=== PATIENT | female | born 1950 | race Caucasian/White ===

== ENCOUNTER 2017-03-15 07:42 | Inpatient (IN) ==
[2017-03-15] MEDS ORDERED: FUROSEMIDE 40 MG/4 ML VIAL IV STA (08:09)
[2017-03-15] MEDS ORDERED: NITROGLYCERIN 2% OINT 1 INCH/GM PACK TOP STA (08:09)
--- NOTE | 2017-03-15 08:11 | Emergency Department Note ---
Gayathri Gamble Rolonda, am scribing for, and in the presence of, Nigel Kulkarni MD 08: 08. Cayla Gamble James D, MD, personally performed the services described in this documentation, ascribed by Jackie Trinh in my presence, and it is both accurate and complete . Arrival - Arrival Chief Complaint: Shortness of Breath Stated Complaint: SOB ED Nursing Triage Note: c/o of shortness of breath and coughing. patient states it started last night. She states she had to sleep in a chair because she was unable to lay flat. Patient is coughing up clear sputum. Mode of Arrival: Ambulatory Limitations: No Limitations Source: Patient, Old Records Reviewed, RN Notes Reviewed - History of Present Illness HPI Narrative: Pt is a 67 y/o female who presents to the ED with c/o SOB with an onset of hours ago. Pt has a PMHx of CAD, HTN, and DM. Pt states that she cannot lay down without getting SOB. She states that her legs swell everyday and that she takes fluid pills for it. She confirms cough with clear production and chest tightness but denies MT, fever, and having stent. No other complaint/pain in ED. Onset (ago): hour(s) Consistency: constant Severity: mild Severity scale (1-10): 3 Allergies/Adverse Reactions: Allergies Allergy/AdvReac Type Severity Reaction Status Date / Time lisinopril Allergy Swelling Verified 03/15/17 07:49 of Lip/Tongue/Throat Home Medications: Home Medications Medication Instructions Recorded Confirmed Type metFORMIN [Glucophage] 1,000 mg PO BID W/MEALS 01/11/15 07/05/16 History cloNIDine TAB [Catapres Tab] 0.1 mg PO BEDTIME 10/11/15 07/05/16 History hydrALAZINE TAB [Apresoline Tab] 100 mg PO TID 10/11/15 07/05/16 History Carvedilol [Coreg] 25 mg PO BID 01/05/16 07/05/16 History Furosemide Tab [Lasix Tab] 40 mg PO DAILY 01/05/16 07/05/16 History Insulin NPH Hum/Reg Insulin Hm 40 unit SUBCUT BEDTIME 01/31/16 07/05/16 History [NovoLIN 70/30] clonazePAM [Klonopin] 0.5 tablet PO BEDTIME 01/31/16 07/05/16 History FLUoxetine [PROzac] 20 mg PO BID 02/07/16 07/05/16 History Gemfibrozil [Lopid] 600 mg PO BIDAC 02/07/16 07/05/16 History Gabapentin 300 mg PO 1400 07/05/16 07/05/16 History Gabapentin Cap/Tab [Neurontin 300 mg PO QAM 07/05/16 07/05/16 History Cap/Tab] Insulin NPH Hum/Reg Insulin Hm 30 unit SUBCUT AC LUNCH 07/05/16 07/05/16 History [NovoLIN 70/30] Ropinirole HCl [Requip] 6 mg PO BID 07/05/16 07/05/16 History Review of System - Review of System 12 point system: reviewed and no additional remarkable complaints except as stated - Review of System Constitutional: Absent: chills Eyes: Absent: discharge Head/Ears/Nose/Throat: Absent: earache Respiratory: Present: cough, respiratory distress (SOB) Cardiovascular: Present: orthopnea. Absent: palpitations Gastrointestinal: Absent: nausea Genitourinary female: Absent: dysuria Musculoskeletal: Present: joint swelling. Absent: arm pain Skin: Absent: rash Neurological: Absent: headache Psychiatric: Absent: anxiety Endocrine: Absent: cold intolerance Hematological/Lymphatic: Absent: easy bleeding Allergic/Immunologic: Absent: facial swelling Medical,Surgical,& Family Hx - Medical History Cardio: History of: CAD, Hypertension Psychological: History of: Anxiety Disorders, Depression HEENT: History of: Eye Problem (Glasses) Comment Only: HEENT Problems (catarcts) Endocrine: History of: Diabetes Mellitus (IDDM), Dyslipidemia, Thyroid Disorder Respiratory: History of: Obstructive Sleep Apnea (CPAP) Gastrointestinal: History of: Pancreatitis (twice around 1999) - Surgical History Cardiac Surgeries: Sugical HX of: Cardiac Catheterization (Dr. Mcgrath) HEENT Surgeries: Surgical HX of: Tonsilectomy & Adenoidectomy Abdominal Surgeries: Surgical HX of: Appendectomy, Cholecystectomy Reproductive Surgeries: Surgical HX of;: Hysterectomy Orthopedic Surgeries: Surgical HX of;: Total Knee Replacement (bilateral) - Family History Family History: Reports;: Family Heart Disease, Family Stroke (Mother) - Social History Smoking Status: Never smoker Frequency of Alcohol Use: None Type of Drug Use: None Exam Vital Signs: Vital Signs Temperature 98.2 F 03/15/17 07:45 Pulse Rate 75 03/15/17 07:45 Respiratory Rate 22 03/15/17 07:45 Blood Pressure 233/126 03/15/17 07:45 O2 Sat by Pulse Oximetry 97 03/15/17 07:45 GENERAL: This is a well-nourished well-developed obese white female in no apparent distress. VITAL SIGNS: Reviewed HEENT: Head is atraumatic and normocephalic. Pupils are equal round react to light. Extraocular movements are intact. Oropharynx is benign with moist mucous membranes. NECK: Neck is soft and supple without tenderness. There are no masses. There is no lymphadenopathy. LUNGS: Bibasilar rales. Chest rises symmetrically. There is no chest wall tenderness. CV: Heart is regular rate and rhythm without murmurs rubs or gallops. ABDOMEN: Abdomen is soft, nontender to palpation. There are no abdominal abnormal masses palpated. There is no organomegaly. Bowel sounds are present and active. SKIN: Skin is warm and dry. No rash. EXTREMITIES: Patient has full range of motion without tenderness. There is 1-2 + pedal edema. NEUROLOGIC: Awake alert and oriented 4. Cranial nerves II through XII are grossly intact. Motor is 5 over 5 in all extremities bilaterally. Deep tendon reflexes are 2+ and bilaterally equal. Course - Consultations Consultation #1: Discussed with hospitalist. Patient will be admitted to their service. Time: 09:08 Results - Labs CBC & BMP: 03/15/17 08:08 03/15/17 08:08 Lab Results: I have reviewed the patients labs Labs: Laboratory Tests 03/15/17 08:08 Troponin I < 0.015 - EKG EKG results: interpreted by ERMD - Impressions EKG: Normal sinus rhythm with a rate of 75, old anterior MT, nonspecific ST-T wave changes. - Diagnostic Findings Procedure: Chest x-ray: image reviewed by me (Increased pulmonary markings bilaterally.) Disposition Clinical Impression: Uncontrolled hypertension, Congestive heart failure Case discussed with: patient, patient's family Disposition: Still a Patient
[2017-03-15] MEDS ORDERED: NITROGLYCERIN 2% OINT 1 INCH/GM PACK TOP ONE (08:15)
[2017-03-15] MEDS ORDERED: FUROSEMIDE 100 MG/10 ML VIAL ONE (08:15)
[2017-03-15 08:28] LABS: Basophils # 0.1 10*3/uL (0.0-0.2); Eosinophils # 0.3 10*3/uL (0.0-0.87); Eosinophils % 3.3 % (0.00-10.9); Hematocrit 32.8 VOL% (35.7-47.0); Hemoglobin 10.8 GM/DL (12.0-16.0); Immature Granulocytes % 0.7 %; Immature Granulocytes Absolute 0.07 #; Lymphocytes # 1.1 10*3/uL (1.4-4.0); Lymphocytes % 10.9 % (21.3-54.2); Mean Corpuscular HGB Conc 32.9 GM/DL (32-36); Mean Corpuscular Hemoglobin 29 PG (27-34); Mean Corpuscular Volume 88.9 FL (87-102); Mean Platelet Volume 11.3 FL (9.6-12.0); Monocytes # 0.8 10*3/uL (0.11-0.8); Monocytes % 7.9 % (1.7-12.7); Neutrophils # 7.6 10*3/uL (1.4-7.4); Neutrophils % 76.2 % (38.7-73.9); Platelet Count 313 T/CUMM (130-400); Red Blood Count 3.69 MC/CUMM (3.8-5.5); Red Cell Distribution Width 12.5 % (9.3-17.3)
[2017-03-15 08:46] LABS: Alanine Aminotransferase 24 U/L (13-56); Albumin 3.8 G/DL (3.4-5.0); Alkaline Phosphatase 100 U/L (45-117); Aspartate Amino Transferase 20 U/L (0-37); Bilirubin,Total < 0.39 MG/DL (0.2-1.0); Blood Urea Nitrogen 31 MG/DL (7-18); Calcium 9.2 MG/DL (8.5-10.1); Glucose 91 MG/DL (74-106); Osmolality,Calculated 287.3 MOS/KG (273-304); Potassium 4.3 MMOL/L (3.5-5.1); Sodium 141 MMOL/L (136-145); Troponin I Only < 0.015 NG/ML (0.00-0.045)
--- NOTE | 2017-03-15 09:57 | EKG Report ---
Stationary ECG Study [facility] ER Test Date: 03/15/2017 8:01:57 AM Pat Name: CHARLEY LEONARDO Department: Room: 122 Gender: F [employer]: : 1950 Requested by: Nigel Garcia Order Number: [id number] Reading MD: TONIO CAAL Intervals [place] Rate: 75 P: -11 [place]: 181 QRS: -23 QRSD: 85 T: 37 QT: 390 QTc: 419 Interpretive Statements SINUS RHYTHM LEFT AXIS DEVIATION POOR R-WAVE PROGRESSION Electronically Signed On 03-15-17 16:15:23 CDT by TONIO CAAL [email or web address]
[2017-03-15] MEDS ORDERED: DEXTROSE 50% 25 GM/50 ML VIAL IV PRN ×2 (10:08)
[2017-03-15] MEDS ORDERED: GLUCAGON 1 MG VIAL IM PRN ×2 (10:08)
--- NOTE | 2017-03-15 10:44 | XRay Report ---
2 view chest March 15, 2017 at 0818 hours Indication: Shortness of breath Comparison: July 05, 2015 Findings: Cardiomediastinal contours are stable. Lungs are clear bilaterally. No acute osseous abnormalities. Visualized upper abdomen demonstrates no acute pathology. Impression: No acute cardiopulmonary findings PROCEDURE INTERPRETED AT [facility] DEPARTMENT OF RADIOLOGY Final Report Signed by: Dre Gonzalez
--- NOTE | 2017-03-15 11:02 | Hospitalist History & Physical ---
Addendum entered and electronically signed by Ashley Ramirez CNP 03/15/17 11 :14: History of present illness This is a very pleasant 59-year-old female that presented to the ED at [facility] this morning for the evaluation of shortness of breath. The patient has a medical history significant for coronary artery disease, diabetes mellitus, hypertension, obstructive sleep apnea, restless leg syndrome , morbid obesity, peripheral neuropathy, hypothyroidism, and medical noncompliance. Patient surgical history significant for cardiac catheterization , tonsillectomy, adenoidectomy, appendectomy, cholecystectomy, hysterectomy, and bilateral total knee replacement. The patient reported the onset of symptoms on last night. She reported that she gradually became short of breath on yesterday and her symptoms became very severe on last night. She reported that she was unable to lie flat and that her lower legs were edematous. In addition, she reported a productive cough with clear-colored sputum and chest tightness. She notified her daughter who subsequently transported her to [facility] for further evaluation. The patient was assessed at the time of ED presentation. The patient was noted to be grossly hypertensive with a blood pressure noted at 233/126. The patient was immediately started on intravenous antihypertensive agents and intravenous diuretics were administered. Labs were obtained which were remarkable for hemoglobin 10.8, hematocrit 32.8, BUN 31, and BNP at 363. Chest x-ray was essentially unremarkable for the presence of any acute cardiopulmonary findings. After brief discussion with both Dr. Kulkarni and Dr. Reid, the patient will be admitted to the hospitalist service for continuation of care. Due to the severity of the patient's presenting symptoms, a cardiology consultation has been requested. The patient's home medications have been reviewed and reconciled. CODE STATUS discussed; patient is a FULL CODE. Original Note: <Ashley Ramirez - Last Filed: 03/15/17 10:59> Assessment and Plan (1) Congestive heart failure Status: Acute Assessment and plan: Chest x-ray was essential unremarkable; BNP noted at 363. Lasix given in the ED ; 2.5 liters removed. We will continue IV diuresis and resume home medications as previously ordered. Upon review of the patient's medical record, echocardiogram on 06/26 reported an estimated ejection fraction at 60%. The patient reports that she has not been seen by a title i paraprofessional since then. She reported that she had previously underwent an elective heart catheterization which was essentially negative. Due to the severity of the patient's presenting symptoms, we will consult cardiology to evaluate. Current Visit: Yes (2) Uncontrolled hypertension Status: Acute Assessment and plan: The patient's blood pressure was grossly elevated at the time of ED presentation. The patient's blood pressure was noted at 233/126. Cardene was initiated. In addition, the patient was diuresed. We will monitor blood pressures throughout the clinical encounter and titrate Cardene as needed. Current Visit: Yes (3) DVT prophylaxis Status: Acute Assessment and plan: We will initiate DVT prophylaxis. Current Visit: No History of Present Illness History of present illness: Ms. Espinoza is a 67 year old female Home Medications Medication Instructions Recorded Confirmed Type metFORMIN [Glucophage] 1,000 mg PO BID W/MEALS 01/11/15 03/15/17 History cloNIDine TAB [Catapres Tab] 0.1 mg PO BEDTIME 10/11/15 03/15/17 History hydrALAZINE TAB [Apresoline Tab] 100 mg PO TID 10/11/15 03/15/17 History Carvedilol [Coreg] 25 mg PO BID 01/05/16 03/15/17 History Furosemide Tab [Lasix Tab] 40 mg PO DAILY 01/05/16 03/15/17 History Insulin NPH Hum/Reg Insulin Hm 40 unit SUBCUT BEDTIME 01/31/16 03/15/17 History [NovoLIN 70/30] clonazePAM [Klonopin] 0.5 tablet PO BEDTIME 01/31/16 03/15/17 History Gemfibrozil [Lopid] 600 mg PO BIDAC 02/07/16 03/15/17 History Gabapentin 300 mg PO BEDTIME 07/05/16 03/15/17 History Gabapentin Cap/Tab [Neurontin 300 mg PO QAM 07/05/16 03/15/17 History Cap/Tab] Insulin NPH Hum/Reg Insulin Hm 30 unit SUBCUT AC LUNCH 07/05/16 03/15/17 History [NovoLIN 70/30] Ropinirole HCl [Requip] 6 mg PO BID 07/05/16 03/15/17 History Venlafaxine HCl [Effexor] 25 mg PO DAILY 03/15/17 03/15/17 History Allergies Allergy/AdvReac Type Severity Reaction Status Date / Time lisinopril Allergy Swelling Verified 03/15/17 07:49 of Lip/Tongue/Throat Medical,Surgical,& Family Hx - Medical History Cardio: History of: CHF, CAD, Hypertension Psychological: History of: Anxiety Disorders, Depression HEENT: History of: Eye Problem (Glasses), HEENT Problems (catarcts) Endocrine: History of: Diabetes Mellitus (IDDM), Dyslipidemia, Thyroid Disorder Respiratory: History of: Obstructive Sleep Apnea (CPAP) Gastrointestinal: History of: Pancreatitis (twice around 1999) - Surgical History Cardiac Surgeries: Sugical HX of: Cardiac Catheterization (Dr. Mcgrath) HEENT Surgeries: Surgical HX of: Tonsilectomy & Adenoidectomy Abdominal Surgeries: Surgical HX of: Appendectomy, Cholecystectomy Reproductive Surgeries: Surgical HX of;: Hysterectomy Orthopedic Surgeries: Surgical HX of;: Total Knee Replacement (bilateral) - Family History Family History: Reports;: Family Hypertension (mother), Family Stroke (Mother) Denies;: Family Heart Disease - Social History Smoking Status: Never smoker Frequency of Alcohol Use: None Type of Drug Use: None 12 point system: reviewed and no additional remarkable complaints except as stated Exam - Constitutional Vitals: Period Temp Pulse Resp BP Sys/David Pulse Ox Last 24 Hr 98.2 F-98.2 F 75-75 22-22 233-233/126-126 97 General appearance: mild distress - Head Head exam: Present: normal inspection. Absent: normocephalic, atraumatic - Eye Eye exam: Present: EOMI. Absent: conjunctival injection, nystagmus Pupils: Present: KAZ, normal accommodation - ENT ENT exam: Present: normal exam, normal external ear exam, normal oropharynx - Neck Neck exam: Present: normal inspection. Absent: lymphadenopathy, meningismus, tenderness, thyromegaly - Respiratory Respiratory exam: Present: rales (bibasilar rales noted) - Cardiovascular Cardiovascular exam: Present: regular rate and rhythm. Absent: carotid bruit, diastolic murmur, gallop, JVD, rubs, systolic murmur - GI/Abdominal GI/Abdominal exam: Present: normal bowel sounds. Absent: tenderness, soft - Extremities Exam Extremities exam: Present: normal inspection, normal capillary refill, full ROM , edema (+2 edema ) - Back Exam Back exam: Present: normal inspection - Neurological Exam Neurological exam: Present: alert, oriented X3, CN II-XII intact - Psychiatric Psychiatric exam: Present: normal affect, normal mood - Skin Skin exam: Present: normal color, warm, dry Results - Labs CBC & BMP: 03/15/17 08:08 03/15/17 08:08 Lab Results: I have reviewed the past 24 hour labs <Cyril Reid - Last Filed: 03/15/17 15:10> History of Present Illness Chief complaint: sob History of present illness: Patient seen and examined independently of TECHNICAL CABLE JOINTER James, agree with history, assessment and plan as documented. Patient presents with sob. BNP slightly elevated. Good diuresis with IV lasix in the ED. Continue IV lasix. Echo pending. On cardene infusion. Start home anti-hypertensives. Exam - Constitutional Vitals: Period Temp Pulse Resp BP Sys/David Pulse Ox Last 24 Hr 97.4 F-98.2 F 72-85 15-25 121-233/54-126 92-97 Results - Labs CBC & BMP: 03/15/17 08:08 03/15/17 08:08
[2017-03-15 11:51] LABS: Apearance,Urine CLEAR (Clear); Bilirubin,Urine Negative (Negative); Blood, Urine Negative (Negative); Glucose,Urine (UA) Negative (Negative); Ketones,Urine Negative (Negative); Mucus,Urine Occasional /LPF (Occasional); Nitrite,Urine Negative (Negative); Protein,Urine 30 MG/DL; RBC,Urine 1 /HPF (0-4); Squamous Epithelial Cell,Urine Occasional /HPF (0-10); Urine Color Straw (Yellow); Urine Specific Gravity 1.008 (1.001-1.035); Urine Urobilinogen < 2.0 EU/DL (0.2-1.0); WBC,Urine <1 /HPF (0-6)
[2017-03-15] MEDS: INSULIN REGULAR 100 UNIT/ML SUBCUT SCH ×3 (11:55→20:17)
[2017-03-15] MEDS: rOPINIRole 1 MG TABLET PO SCH ×2 (12:17→20:16)
[2017-03-15] MEDS: ENOXAPARIN 40 MG/0.4 ML SYRINGE SUBCUT SCH (12:19)
[2017-03-15] MEDS ORDERED: ACETAMINOPHEN 325 MG TABLET PO PRN (12:46)
[2017-03-15] MEDS ORDERED: ONDANSETRON 4 MG/2 ML VIAL IV PRN (13:10)
[2017-03-15] MEDS ORDERED: ONDANSETRON 4 MG/2 ML VIAL ONE (13:11)
[2017-03-15] MEDS: niCARdipine INJ 25 MG in SODIUM CHLORIDE 0.9% 240 ML IV SCH ×2 (13:21→19:31)
[2017-03-15] MEDS ORDERED: MAGNESIUM SULF RIDER 2 GM in PREMIX 1 EACH IV PRN (13:44)
[2017-03-15] MEDS ORDERED: POTASSIUM CHLORIDE RIDER 10 MEQ in PREMIX 1 EACH IV PRN (13:44)
[2017-03-15] MEDS ORDERED: MAGNESIUM SULF RIDER 4 GM in PREMIX 1 EACH IV PRN (13:44)
[2017-03-15] MEDS: GABAPENTIN 300 MG CAPSULE PO SCH (14:07)
[2017-03-15] MEDS: FUROSEMIDE 40 MG/4 ML VIAL IV SCH (15:55)
--- NOTE | 2017-03-15 15:55 | ECHO Report ---
Sarahi Espinoza Exam Date: 03/15/2017 10:50 Referring Physician: Technologist: Nancy Oconnor Age: 67 Ht (in): 66 Wt (lb): 225 Gender: F Exam Location: [facility] Echo Indications: SOB, HTN, edema, CHF exacerbation BP: 133 / 126 HR: 75 Rhythm: Sinus Technical Quality: Technically difficult study IMPRESSIONS Technically difficult study. Left ventricular ejection fraction is estimated at greater than 65 %. Mild concentric left ventricular hypertrophy. Mild aortic sclerosis without stenosis. Mildly thickened mitral valve with trace mitral regurgitation. Trace tricuspid valve regurgitation. MEASUREMENTS (Male / Female) Normal Values 2D ECHO LV Diastolic Diameter PLAX 4.1 cm 4.2 - 5.9 / 3.9 - 5.3 cm LV Systolic Diameter PLAX 2.1 cm LV Fractional Shortening PLAX 49.1 % IVS Diastolic Thickness 1.1 cm 0.6 - 1.0 / 0.6 - 0.9 cm LVPW Diastolic Thickness 1.3 cm 0.6 - 1.0 / 0.6 - 0.9 cm Aortic Root Diameter 2.3 cm LA Systolic Diameter LX 3.3 cm 3.0 - 4.0 / 2.7 - 3.8 cm DOPPLER TR Peak Velocity 266.0 cm/s TR Peak Gradient 28.3 mmHg FINDINGS Left Ventricle Normal left ventricular cavity size. Mild concentric left ventricular hypertrophy. Left ventricular ejection fraction is estimated at greater than 65 %. Right Ventricle Normal right ventricular size. Right Atrium Normal right atrial size. Left Atrium Normal left atrial size. Mitral Valve Mildly thickened mitral valve with trace mitral regurgitation. Aortic Valve Mild aortic sclerosis without stenosis. Tricuspid Valve Morphologically normal tricuspid valve. Trace tricuspid valve regurgitation. Tricuspid regurgitation velocities suggest a PAP of 28.3 mmHg + RAP. Pulmonic Valve Morphologically normal pulmonic valve. Pericardium No pericardial effusion. Aorta Normal size aortic root and proximal ascending aorta. Phu Laboy (Electronically Signed) Final Date: 15 March 2017 15:54
[2017-03-15] MEDS: GEMFIBROZIL 600 MG TABLET PO SCH (16:34)
--- NOTE | 2017-03-15 16:36 | Cardiology Consult Note ---
Assessment and Plan (1) Acute diastolic (congestive) heart failure Status: Acute Assessment and plan: The patient has preserved left ventricular and valvular function. This appears to be diastolic heart failure which may be related to dietary indiscretion, excessive sodium and carbohydrate intake which promotes fluid retention while the patient was on the beach recently. She has responded promptly to diuresis and is feeling dramatically better. Current Visit: Yes (2) Uncontrolled hypertension Status: Acute Assessment and plan: I am going to review make some adjustments in medications to try to optimize her hypertension control. Current Visit: Yes (3) Diabetes mellitus Status: Chronic Current Visit: No (4) Hypothyroidism Status: Chronic Current Visit: No Qualifiers: (5) Obesity Status: Chronic Current Visit: No (6) Obstructive sleep apnea Status: Chronic Current Visit: No (7) Peripheral neuropathy Status: Chronic Current Visit: No Qualifiers: Peripheral neuropathy type: polyneuropathy associated with underlying disease Qualified Code(s): G63 - Polyneuropathy in diseases classified elsewhere History of Present Illness - Consult Narrative History of present illness: Ms. Espinoza is a 67 year old female who has a past medical history of hypertension and diabetes. She came into the hospital after having progressive dyspnea/orthopnea over the previous day or 2. She says that she was on the beach and they had significant dietary noncompliance excessively, including food with higher carbohydrate and sodium content. Ultimately, patient was found to be profoundly hypertensive and moderately volume overloaded. She was treated with diuresis and she tells me "they have emptied that bottle about 5 times since I got here". She is now feeling essentially back to normal. Patient has no significant coronary artery disease. She apparently underwent cardiac catheterization a few years ago with Dr. Mcgrath. She did not have any significant obstructive disease at that time and did not require percutaneous coronary intervention. The patient does not have any anginal symptoms. She denies any palpitations or syncope. Essentially she had orthopnea, dyspnea, and peripheral edema. The symptoms were moderate in severity. There were no associated symptoms such as nausea or diaphoresis. Symptoms have rapidly resolved with diuresis. I reviewed the patient's echocardiogram today which shows normal left ventricular systolic function. She does not have any significant valvular heart disease. She does have diastolic dysfunction. This appears to be a case of acute diastolic congestive heart failure related to lifestyle/dietary indiscretion which is probably resolving with medical therapy/ diuresis. Patient does report a history of hypertension and tells me that her blood pressure sometimes runs too high. I will review her medications and make some adjustments to try to get this better controlled. She has a history of diabetes and reports that this is fairly well controlled, though she does have a history of diabetic neuropathy. CC: Cyril Reid MD - Home Medications and Allergies Home Medications: Home Medications Medication Instructions Recorded Confirmed Type metFORMIN [Glucophage] 1,000 mg PO BID W/MEALS 01/11/15 03/15/17 History cloNIDine TAB [Catapres Tab] 0.1 mg PO BEDTIME 10/11/15 03/15/17 History hydrALAZINE TAB [Apresoline Tab] 100 mg PO TID 10/11/15 03/15/17 History Carvedilol [Coreg] 25 mg PO BID 01/05/16 03/15/17 History Furosemide Tab [Lasix Tab] 40 mg PO DAILY 01/05/16 03/15/17 History Insulin NPH Hum/Reg Insulin Hm 40 unit SUBCUT BEDTIME 01/31/16 03/15/17 History [NovoLIN 70/30] clonazePAM [Klonopin] 0.5 tablet PO BEDTIME 01/31/16 03/15/17 History Gemfibrozil [Lopid] 600 mg PO BIDAC 02/07/16 03/15/17 History Gabapentin 300 mg PO BEDTIME 07/05/16 03/15/17 History Gabapentin Cap/Tab [Neurontin 300 mg PO QAM 07/05/16 03/15/17 History Cap/Tab] Insulin NPH Hum/Reg Insulin Hm 30 unit SUBCUT AC LUNCH 07/05/16 03/15/17 History [NovoLIN 70/30] Ropinirole HCl [Requip] 6 mg PO BID 07/05/16 03/15/17 History Venlafaxine HCl [Effexor] 25 mg PO DAILY 03/15/17 03/15/17 History Allergies/Adverse Reactions: Allergies Allergy/AdvReac Type Severity Reaction Status Date / Time lisinopril Allergy Swelling Verified 03/15/17 07:49 of Lip/Tongue/Throat 12 point system: reviewed and no additional remarkable complaints except as stated Medical,Surgical,& Family Hx - Medical History Cardio: History of: CHF, CAD, Hypertension Psychological: History of: Anxiety Disorders, Depression HEENT: History of: Eye Problem (Glasses), HEENT Problems (catarcts) Endocrine: History of: Diabetes Mellitus (IDDM), Dyslipidemia, Thyroid Disorder Respiratory: History of: Obstructive Sleep Apnea (CPAP) Gastrointestinal: History of: Pancreatitis (twice around 1999) - Surgical History Cardiac Surgeries: Sugical HX of: Cardiac Catheterization (Dr. Mcgrath) HEENT Surgeries: Surgical HX of: Tonsilectomy & Adenoidectomy Abdominal Surgeries: Surgical HX of: Appendectomy, Cholecystectomy Reproductive Surgeries: Surgical HX of;: Hysterectomy Orthopedic Surgeries: Surgical HX of;: Total Knee Replacement (bilateral) - Family History Family History: Reports;: Family Hypertension (mother), Family Stroke (Mother) Denies;: Family Heart Disease - Social History Smoking Status: Never smoker Frequency of Alcohol Use: None Type of Drug Use: None Physical Examination Vital Signs Temp Pulse Resp BP Pulse Ox 98.2 F 75 22 233/126 97 03/15/17 07:45 03/15/17 07:45 03/15/17 07:45 03/15/17 07:45 03/15/17 07:45 Exam: General: Appears well developed, obese, well nourished, no apparent distress HEENT: Normocephalic, atraumatic Neck: Supple Neck, Midline Trachea, No Bruit, No JVD Cardiac: Regular rhythm, 1-2 out of 6 murmur, no gallop, no rub Lungs: Clear to auscultation, No Wheeze, Rales, Rhonchi Neuro: Cranial Nerve 2-12 Intact, Motor Function Grossly Intact Abdomen: Soft, Active Bowel Sounds, No Masses, No Pulsations/Bruits Skin: Normal color, no rash Extremities: No Clubbing, No Cyanosis, trace edema, Normal Upper Extr. Pulses Musculoskeletal: No acute abnormality noted Psychiatric: The patient does not appear to be anxious or depressed Result/EKG - Labs CBC & BMP: 03/15/17 08:08 03/15/17 08:08 Lab Results: I have reviewed the past 24 hour labs Labs: Laboratory Results - last 24 hr 03/15/17 03/15/17 03/15/17 08:08 08:08 08:08 WBC 10.0 RBC 3.69 L Hgb 10.8 L Hct 32.8 L MCV 88.9 MCH 29 MCHC 32.9 RDW 12.5 Plt Count 313 MPV 11.3 Neut % (Auto) 76.2 H Lymph % (Auto) 10.9 L [place] % (Auto) 7.9 Eos % (Auto) 3.3 Baso % (Auto) 1.0 H Neut # (Auto) 7.6 H Lymph # (Auto) 1.1 L [place] # (Auto) 0.8 Eos # (Auto) 0.3 Baso # (Auto) 0.1 Immature Gran % 0.7 Nucleated RBC % 0.0 Immature Gran # 0.07 Nucleated RBCs # 0.00 Immature Plt Fraction 0.0 Sodium 141 Potassium 4.3 Chloride 107 Carbon Dioxide 29 Anion Gap 9.3 BUN 31 H Creatinine 0.90 GFR Calculation 80 BUN/Creatinine Ratio 34.00 H Glucose 91 POC Glucose Hemoglobin A1c Calculated Osmolality 287.3 Calcium 9.2 Total Bilirubin < 0.39 AST 20 ALT 24 Alkaline Phosphatase 100 Troponin I < 0.015 B-Natriuretic Peptide 363 H Total Protein 7.0 Albumin 3.8 Globulin 3.2 Albumin/Globulin Ratio 1.1 Urine Color Urine Appearance Urine pH Ur Specific [place] Urine Protein Urine Glucose (UA) Urine Ketones Urine Blood Urine Nitrate Urine Bilirubin Urine Urobilinogen Urine Leukocytes Urine RBC Urine WBC Ur Squamous Epith Cells Urine Mucus Ur Culture Indicated? 03/15/17 03/15/17 03/15/17 08:48 11:34 11:42 WBC RBC Hgb Hct MCV MCH MCHC RDW Plt Count MPV Neut % (Auto) Lymph % (Auto) [place] % (Auto) Eos % (Auto) Baso % (Auto) Neut # (Auto) Lymph # (Auto) [place] # (Auto) Eos # (Auto) Baso # (Auto) Immature Gran % Nucleated RBC % Immature Gran # Nucleated RBCs # Immature Plt Fraction Sodium Potassium Chloride Carbon Dioxide Anion Gap BUN Creatinine GFR Calculation BUN/Creatinine Ratio Glucose POC Glucose 109 H Hemoglobin A1c 9.4 H Calculated Osmolality Calcium Total Bilirubin AST ALT Alkaline Phosphatase Troponin I B-Natriuretic Peptide Total Protein Albumin Globulin Albumin/Globulin Ratio Urine Color Straw Urine Appearance Clear Urine pH 7.0 Ur Specific [place] 1.008 Urine Protein 30 Urine Glucose (UA) Negative Urine Ketones Negative Urine Blood Negative Urine Nitrate Negative Urine Bilirubin Negative Urine Urobilinogen < 2.0 H Urine Leukocytes Negative Urine RBC 1 Urine WBC <1 Ur Squamous Epith Cells Occasional Urine Mucus Occasional Ur Culture Indicated? Not indicated 03/15/17 15:53 WBC RBC Hgb Hct MCV MCH MCHC RDW Plt Count MPV Neut % (Auto) Lymph % (Auto) [place] % (Auto) Eos % (Auto) Baso % (Auto) Neut # (Auto) Lymph # (Auto) [place] # (Auto) Eos # (Auto) Baso # (Auto) Immature Gran % Nucleated RBC % Immature Gran # Nucleated RBCs # Immature Plt Fraction Sodium Potassium Chloride Carbon Dioxide Anion Gap BUN Creatinine GFR Calculation BUN/Creatinine Ratio Glucose POC Glucose 197 H Hemoglobin A1c Calculated Osmolality Calcium Total Bilirubin AST ALT Alkaline Phosphatase Troponin I B-Natriuretic Peptide Total Protein Albumin Globulin Albumin/Globulin Ratio Urine Color Urine Appearance Urine pH Ur Specific [place] Urine Protein Urine Glucose (UA) Urine Ketones Urine Blood Urine Nitrate Urine Bilirubin Urine Urobilinogen Urine Leukocytes Urine RBC Urine WBC Ur Squamous Epith Cells Urine Mucus Ur Culture Indicated? - EKG EKG results: interpreted by me
[2017-03-15] MEDS: FLUoxetine 20 MG CAPSULE PO SCH (20:17)
[2017-03-15] MEDS: CARVEDILOL 25 MG TABLET PO SCH (20:17)
[2017-03-15] MEDS: cloNIDine 0.1 MG TABLET PO SCH (20:17)
[2017-03-15] MEDS: clonazePAM 0.5 MG TABLET PO SCH (20:17)
[2017-03-16 05:59] LABS: Basophils # 0.1 10*3/uL (0.0-0.2); Basophils % 1.1 % (0.0-0.8); Eosinophils # 0.1 10*3/uL (0.0-0.87); Eosinophils % 1.2 % (0.00-10.9); Hematocrit 32.7 VOL% (35.7-47.0); Hemoglobin 10.7 GM/DL (12.0-16.0); Immature Granulocytes % 0.7 %; Immature Granulocytes Absolute 0.05 #; Lymphocytes # 1.1 10*3/uL (1.4-4.0); Mean Corpuscular HGB Conc 32.7 GM/DL (32-36); Mean Corpuscular Hemoglobin 29 PG (27-34); Mean Corpuscular Volume 88.6 FL (87-102); Mean Platelet Volume 11.7 FL (9.6-12.0); Monocytes # 0.6 10*3/uL (0.11-0.8); Monocytes % 8.7 % (1.7-12.7); Neutrophils # 5.4 10*3/uL (1.4-7.4); Neutrophils % 73.3 % (38.7-73.9); Platelet Count 305 T/CUMM (130-400); Red Blood Count 3.69 MC/CUMM (3.8-5.5); Red Cell Distribution Width 12.6 % (9.3-17.3); White Blood Count 7.4 T/CUMM (4-12)
[2017-03-16 06:47] LABS: Albumin 3.4 G/DL (3.4-5.0); Bilirubin,Total 0.8 MG/DL (0.2-1.0); Magnesium 2.4 MG/DL (1.8-2.4); Osmolality,Calculated 285.7 MOS/KG (273-304); Phosphorous 4.2 MG/DL (2.5-4.9); Total Protein 6.6 G/DL (6.4-8.3)
[2017-03-16] MEDS: GEMFIBROZIL 600 MG TABLET PO SCH ×2 (07:47→16:11)
[2017-03-16] MEDS: FUROSEMIDE 40 MG/4 ML VIAL IV SCH ×2 (07:47→16:10)
[2017-03-16] MEDS: INSULIN REGULAR 100 UNIT/ML SUBCUT SCH ×4 (07:47→21:41)
--- NOTE | 2017-03-16 07:59 | XRay Report ---
Exam: XR chest 1V portable Date: 03/16/2017 4:00 AM Indication: COPD Comparison: 03/15/2017 Technical: AP portable Findings: Mild cardiomegaly. Lateral marginal osteophytes are present. External cardiac leads are present. Oxygen tubing superimposes exam. Mediastinum is intact Impression: 1. Cardiomegaly 2. Minimal motion artifact with some residual interstitial densities present in the lung go bilaterally and tiny low volume effusions are suspected 3. Slight improving aeration in the infrahilar region on the right PROCEDURE INTERPRETED AT [facility] ([facility]) DEPARTMENT OF RADIOLOGY Final Report Signed by: Dr. Víctor Galvez
--- NOTE | 2017-03-16 08:40 | Hospitalist Progress Note ---
Assessment and Plan (1) Acute diastolic (congestive) heart failure Status: Acute Assessment and plan: Impression: 1. Acute diastolic congestive heart failure Plan: Transfer to room. Hope to discharge soon. This note was completed using [employer] voice recognition software. There may be lap hand tool errors as a result. Current Visit: Yes Hospitalist: Subjective Interval history: Follow-up acute on chronic diastolic congestive heart failure, hypertension, and type II DM. The patient feels much better today. She is up eating breakfast. She offers no complaints. She denies any chest discomfort or dyspnea. Exam - Constitutional Vitals: Period Temp Pulse Resp BP Sys/David Pulse Ox Last 24 Hr 97.0 F-99.7 F 64-88 15-71 101-233/51-126 91-100 Vital signs are noted above. Heart is regular with a 2/6 systolic ejection murmur. Lungs are clear with no rales or wheezes. Abdomen is soft with no mass or tenderness. She is awake and alert. Results - Labs CBC & BMP: 03/16/17 04:54 03/16/17 04:55 Lab Results: I have reviewed the past 24 hour labs
[2017-03-16] MEDS: VENLAFAXINE 100 MG TABLET PO SCH (08:42)
[2017-03-16] MEDS: GABAPENTIN 300 MG CAPSULE PO SCH ×2 (08:43→14:29)
[2017-03-16] MEDS: CARVEDILOL 25 MG TABLET PO SCH ×2 (08:43→21:41)
[2017-03-16] MEDS: rOPINIRole 1 MG TABLET PO SCH ×2 (08:43→21:44)
[2017-03-16] MEDS: niCARdipine INJ 25 MG in SODIUM CHLORIDE 0.9% 240 ML IV SCH (08:44)
[2017-03-16] MEDS: FLUoxetine 20 MG CAPSULE PO SCH ×2 (08:45→21:43)
--- NOTE | 2017-03-16 11:03 | Cardiology Progress Note ---
Charli Gamble Vanessa RN, am scribing for, and in the presence of, Doris Mathew MD 11:03. Assessment and Plan - Time spent with patient Time spent with patient: Greater than 30 minutes (1) Acute diastolic (congestive) heart failure Status: Acute Assessment and plan: SEE PLAN OF CARE LISTED BELOW. Current Visit: Yes (2) Uncontrolled hypertension Status: Acute Assessment and plan: SEE PLAN OF CARE LISTED BELOW. Current Visit: Yes (3) Coronary artery disease Status: Chronic Assessment and plan: SEE PLAN OF CARE LISTED BELOW. Current Visit: No (4) Noncompliance with medications Status: Chronic Assessment and plan: SEE PLAN OF CARE LISTED BELOW. Current Visit: No (5) Diabetes mellitus Status: Chronic Assessment and plan: SEE PLAN OF CARE LISTED BELOW. Current Visit: No (6) Hypothyroidism Status: Chronic Assessment and plan: SEE PLAN OF CARE LISTED BELOW. Current Visit: No Qualifiers: (7) Obesity Status: Chronic Assessment and plan: SEE PLAN OF CARE LISTED BELOW. Current Visit: No (8) Obstructive sleep apnea Status: Chronic Assessment and plan: SEE PLAN OF CARE LISTED BELOW. Current Visit: No (9) Peripheral neuropathy Status: Chronic Assessment and plan: SEE PLAN OF CARE LISTED BELOW. Current Visit: No Qualifiers: Peripheral neuropathy type: polyneuropathy associated with underlying disease Qualified Code(s): G63 - Polyneuropathy in diseases classified elsewhere (10) angioedema with lisinopril Status: Resolved Assessment and plan: SEE PLAN OF CARE LISTED BELOW. Current Visit: No (11) Essential hypertension Status: Chronic Assessment and plan: SEE PLAN OF CARE LISTED BELOW. Current Visit: No Cardiology - PN: Subj Interval history: [employer] MANAGER: DR. MCGRATH SUMMARY: 67-year-old WF, with PMHx hypertension, diabetes (with neuropathy), obstructive sleep apnea (on CPAP), hypothyroidism, and CAD. Admitted to [facility] after presenting to ED on afternoon of 03/15 with c/o increasing dyspnea, orthopnea, and lower extremity edema for 1 week. Blood pressure was uncontrolled , 223/116, required IV Cardene infusion. BNP 363. Chest x-ray normal. Greater than 2,500 mls output after IV diuretic in ER. Echocardiogram with preserved LV systolic function, EF 65%, mild LVH, trace TR with PA pressure 28.3 mmHg. Patient had recently returned from week long family vacation to the [place], and admitted to dietary noncompliance. No exertional chest pain or discomfort. Weed much better soon after admission with initiation of IV Lasix therapy and with BP now more controlled. Cardiology was asked to see for further assistance of acute diastolic CHF, uncontrolled HTN. Noted allergy to MINDY inhibitors ( angioedema). 2016: Mrs. Espinoza closely observed in CCU overnight. She is awake, pleasant, and in no acute distress this morning. Reports she is feeling much better, able to breathe comfortably, and that lower extremity edema is much improved as she says , "It isn't even half of what it was yesterday." SBP 130-155 mmHg range. Productive cough, clear sputum. Cardiac monitoring demonstrates sinus rhythm, HR averaging 60s. Labs reviewed. Cell counts unremarkable. Electrolytes within acceptable range. Creatinine slightly increased after aggressive diuresis to 1.1 (0.9 on admit). BNP decreased, 174. Hemoglobin A1c 9.4. ASSESSMENT/PLAN: 1. ACUTE CHF, DIASTOLIC -patient has preserved LV systolic function. Acute CHF most likely secondary to uncontrolled hypertension and excessive dietary noncompliance on recent vacation. Much improved today after aggressive IV diuresis overnight. Continue diuresis. Strict I/O, daily weights, BMP. 2. HYPERTENSION -uncontrolled hypertension on admission. Required IV Cardene, has since been weaned off. Procardia XL 30 mg by mouth nightly was initiated last night. She acknowledges that she does not routinely check her blood pressure at home and does not know how long it has been uncontrolled. 3. DIABETES -reports this is usually controlled but she does have neuropathy. Hemoglobin A1c 9.4 on admit. 4. DYSLIPIDEMIA -continue lipid-lowering agent. Review fasting lipid panel. 5. MISTI -continue CPAP. 6. OBESITY -dietary counseling and caloric intake restriction 7. CAD -patient is not having any anginal complaint. Has reportedly undergone previous cardiac catheterization per Dr. Mcgrath "3-4 years ago" with nonobstructive CAD being managed medically. 8. HYPOTHYROID - continue thyroid supplement. 9. NONCOMPLIANCE - reiterated the importance of medical and dietary compliance. Exam (Progress Note) - Constitutional Vitals: Period Temp Pulse Resp BP Sys/David Pulse Ox Last 24 Hr 97.0 F-99.7 F 64-88 15-71 101-233/51-126 91-100 Exam: General: Appears well developed, obese, well nourished, no apparent distress HEENT: Normocephalic, atraumatic Neck: Supple Neck, Midline Trachea, No Bruit, JVD Cardiac: Regular rhythm, systolic murmur, no gallop, no rub Lungs: Rales bibasilarly-greater on left than right, No Wheeze, No Rhonchi Neuro: Cranial Nerve 2-12 Intact, Motor Function Grossly Intact. Alert and oriented x 3. No tremor appreciated. Abdomen: Soft, Active Bowel Sounds, No Masses, No Pulsations/Bruits. No tenderness. Skin: Normal color, no rash. Warm and dry. Extremities: No Clubbing, No Cyanosis, pretibial and pedal trace edema, Normal Upper and Lower extremity pulses Musculoskeletal: No acute abnormality noted Psychiatric: The patient does not appear to be anxious or depressed. Normal affect and mood Result/EKG - Labs CBC & BMP: 03/16/17 04:54 03/16/17 04:55 Lab Results: I have reviewed the past 24 hour labs Labs: Laboratory Results - last 24 hr 03/15/17 03/15/17 03/15/17 08:08 08:08 08:08 WBC 10.0 RBC 3.69 L Hgb 10.8 L Hct 32.8 L MCV 88.9 MCH 29 MCHC 32.9 RDW 12.5 Plt Count 313 MPV 11.3 Neut % (Auto) 76.2 H Lymph % (Auto) 10.9 L [place] % (Auto) 7.9 Eos % (Auto) 3.3 Baso % (Auto) 1.0 H Neut # (Auto) 7.6 H Lymph # (Auto) 1.1 L [place] # (Auto) 0.8 Eos # (Auto) 0.3 Baso # (Auto) 0.1 Immature Gran % 0.7 Nucleated RBC % 0.0 Immature Gran # 0.07 Nucleated RBCs # 0.00 Immature Plt Fraction 0.0 Sodium 141 Potassium 4.3 Chloride 107 Carbon Dioxide 29 Anion Gap 9.3 BUN 31 H Creatinine 0.90 GFR Calculation 80 BUN/Creatinine Ratio 34.00 H Glucose 91 POC Glucose Hemoglobin A1c Calculated Osmolality 287.3 Calcium 9.2 Phosphorus Magnesium Total Bilirubin < 0.39 AST 20 ALT 24 Alkaline Phosphatase 100 Troponin I < 0.015 B-Natriuretic Peptide 363 H Total Protein 7.0 Albumin 3.8 Globulin 3.2 Albumin/Globulin Ratio 1.1 Urine Color Urine Appearance Urine pH Ur Specific [place] Urine Protein Urine Glucose (UA) Urine Ketones Urine Blood Urine Nitrate Urine Bilirubin Urine Urobilinogen Urine Leukocytes Urine RBC Urine WBC Ur Squamous Epith Cells Urine Mucus Ur Culture Indicated? 03/15/17 03/15/17 03/15/17 08:48 11:34 11:42 WBC RBC Hgb Hct MCV MCH MCHC RDW Plt Count MPV Neut % (Auto) Lymph % (Auto) [place] % (Auto) Eos % (Auto) Baso % (Auto) Neut # (Auto) Lymph # (Auto) [place] # (Auto) Eos # (Auto) Baso # (Auto) Immature Gran % Nucleated RBC % Immature Gran # Nucleated RBCs # Immature Plt Fraction Sodium Potassium Chloride Carbon Dioxide Anion Gap BUN Creatinine GFR Calculation BUN/Creatinine Ratio Glucose POC Glucose 109 H Hemoglobin A1c 9.4 H Calculated Osmolality Calcium Phosphorus Magnesium Total Bilirubin AST ALT Alkaline Phosphatase Troponin I B-Natriuretic Peptide Total Protein Albumin Globulin Albumin/Globulin Ratio Urine Color Straw Urine Appearance Clear Urine pH 7.0 Ur Specific [place] 1.008 Urine Protein 30 Urine Glucose (UA) Negative Urine Ketones Negative Urine Blood Negative Urine Nitrate Negative Urine Bilirubin Negative Urine Urobilinogen < 2.0 H Urine Leukocytes Negative Urine RBC 1 Urine WBC <1 Ur Squamous Epith Cells Occasional Urine Mucus Occasional Ur Culture Indicated? Not indicated 03/15/17 03/15/17 03/16/17 15:53 20:08 04:54 WBC 7.4 RBC 3.69 L Hgb 10.7 L Hct 32.7 L MCV 88.6 MCH 29 MCHC 32.7 RDW 12.6 Plt Count 305 MPV 11.7 Neut % (Auto) 73.3 Lymph % (Auto) 15.0 L [place] % (Auto) 8.7 Eos % (Auto) 1.2 Baso % (Auto) 1.1 H Neut # (Auto) 5.4 Lymph # (Auto) 1.1 L [place] # (Auto) 0.6 Eos # (Auto) 0.1 Baso # (Auto) 0.1 Immature Gran % 0.7 Nucleated RBC % 0.0 Immature Gran # 0.05 Nucleated RBCs # 0.00 Immature Plt Fraction 0.0 Sodium Potassium Chloride Carbon Dioxide Anion Gap BUN Creatinine GFR Calculation BUN/Creatinine Ratio Glucose POC Glucose 197 H 289 H Hemoglobin A1c Calculated Osmolality Calcium Phosphorus Magnesium Total Bilirubin AST ALT Alkaline Phosphatase Troponin I B-Natriuretic Peptide Total Protein Albumin Globulin Albumin/Globulin Ratio Urine Color Urine Appearance Urine pH Ur Specific [place] Urine Protein Urine Glucose (UA) Urine Ketones Urine Blood Urine Nitrate Urine Bilirubin Urine Urobilinogen Urine Leukocytes Urine RBC Urine WBC Ur Squamous Epith Cells Urine Mucus Ur Culture Indicated? 03/16/17 03/16/17 03/16/17 04:54 04:55 07:02 WBC RBC Hgb Hct MCV MCH MCHC RDW Plt Count MPV Neut % (Auto) Lymph % (Auto) [place] % (Auto) Eos % (Auto) Baso % (Auto) Neut # (Auto) Lymph # (Auto) [place] # (Auto) Eos # (Auto) Baso # (Auto) Immature Gran % Nucleated RBC % Immature Gran # Nucleated RBCs # Immature Plt Fraction Sodium 138 Potassium 4.0 Chloride 100 Carbon Dioxide 30 Anion Gap 12.0 BUN 31 H Creatinine 1.10 H GFR Calculation 63 BUN/Creatinine Ratio 28.00 H Glucose 176 H POC Glucose 185 H Hemoglobin A1c Calculated Osmolality 285.7 Calcium 9.0 Phosphorus 4.2 Magnesium 2.4 Total Bilirubin 0.80 AST 15 ALT 21 Alkaline Phosphatase 90 Troponin I B-Natriuretic Peptide 174 H Total Protein 6.6 Albumin 3.4 Globulin 3.2 Albumin/Globulin Ratio 1.0 L Urine Color Urine Appearance Urine pH Ur Specific [place] Urine Protein Urine Glucose (UA) Urine Ketones Urine Blood Urine Nitrate Urine Bilirubin Urine Urobilinogen Urine Leukocytes Urine RBC Urine WBC Ur Squamous Epith Cells Urine Mucus Ur Culture Indicated? - Diagnostic Findings Procedure: Chest x-ray: image reviewed by me, report reviewed by me - EKG EKG results: interpreted by me, no acute changes EKG shows: sinus rhythm Quincy Gamble Jennifer, MD, personally performed the services described in this documentation, ascribed by Melissa Augustin RN in my presence, and it is both accurate and complete .
[2017-03-16] MEDS: ENOXAPARIN 40 MG/0.4 ML SYRINGE SUBCUT SCH (12:11)
[2017-03-16] MEDS: cloNIDine 0.1 MG TABLET PO SCH (21:41)
[2017-03-16] MEDS: clonazePAM 0.5 MG TABLET PO SCH (21:43)
[2017-03-17 04:17] LABS: Basophils # 0.1 10*3/uL (0.0-0.2); Basophils % 1.6 % (0.0-0.8); Eosinophils # 0.2 10*3/uL (0.0-0.87); Eosinophils % 4.3 % (0.00-10.9); Hematocrit 33.3 VOL% (35.7-47.0); Hemoglobin 11.1 GM/DL (12.0-16.0); Immature Granulocytes % 1.2 %; Immature Granulocytes Absolute 0.06 #; Lymphocytes # 0.9 10*3/uL (1.4-4.0); Lymphocytes % 17.2 % (21.3-54.2); Mean Corpuscular HGB Conc 33.3 GM/DL (32-36); Mean Corpuscular Hemoglobin 29 PG (27-34); Mean Corpuscular Volume 87.4 FL (87-102); Mean Platelet Volume 11.3 FL (9.6-12.0); Monocytes # 0.7 10*3/uL (0.11-0.8); Neutrophils # 3.2 10*3/uL (1.4-7.4); Neutrophils % 62.7 % (38.7-73.9); Platelet Count 324 T/CUMM (130-400); Red Blood Count 3.81 MC/CUMM (3.8-5.5); Red Cell Distribution Width 12.5 % (9.3-17.3); White Blood Count 5.2 T/CUMM (4-12)
[2017-03-17 04:44] LABS: Calcium 9.1 MG/DL (8.5-10.1); Magnesium 2.5 MG/DL (1.8-2.4); Osmolality,Calculated 289.8 MOS/KG (273-304); Potassium 4.2 MMOL/L (3.5-5.1); Potassium 4.3 MMOL/L (3.5-5.1)
[2017-03-17] MEDS: FLUoxetine 20 MG CAPSULE PO SCH ×2 (09:48→21:23)
[2017-03-17] MEDS: VENLAFAXINE 100 MG TABLET PO SCH (09:48)
[2017-03-17] MEDS: GABAPENTIN 300 MG CAPSULE PO SCH ×2 (09:48→15:11)
[2017-03-17] MEDS: rOPINIRole 1 MG TABLET PO SCH ×2 (09:49→21:23)
[2017-03-17] MEDS: GEMFIBROZIL 600 MG TABLET PO SCH ×2 (09:49→17:27)
[2017-03-17] MEDS: CARVEDILOL 25 MG TABLET PO SCH ×2 (09:49→21:23)
[2017-03-17] MEDS: FUROSEMIDE 40 MG/4 ML VIAL IV SCH (09:51)
[2017-03-17] MEDS: INSULIN REGULAR 100 UNIT/ML SUBCUT SCH ×4 (09:51→21:24)
[2017-03-17] MEDS: FUROSEMIDE 80 MG TABLET PO SCH (10:36)
[2017-03-17] MEDS: INSULIN NPH/REGULAR 70/30 100 UNIT/ML SUBCUT SCH ×2 (12:21→21:24)
[2017-03-17] MEDS: ENOXAPARIN 40 MG/0.4 ML SYRINGE SUBCUT SCH (12:22)
--- NOTE | 2017-03-17 13:03 | Cardiology Progress Note ---
Charli Gamble Vanessa, RN, am scribing for, and in the presence of, Doris Mathew MD 13:03. Assessment and Plan - Time spent with patient Time spent with patient: Greater than 30 minutes (1) Acute diastolic (congestive) heart failure Status: Acute Assessment and plan: SEE PLAN OF CARE LISTED BELOW. Current Visit: Yes (2) Uncontrolled hypertension Status: Acute Assessment and plan: SEE PLAN OF CARE LISTED BELOW. Current Visit: Yes (3) Coronary artery disease Status: Chronic Assessment and plan: SEE PLAN OF CARE LISTED BELOW. Current Visit: No (4) Noncompliance with medications Status: Chronic Assessment and plan: SEE PLAN OF CARE LISTED BELOW. Current Visit: No (5) Diabetes mellitus Status: Chronic Assessment and plan: SEE PLAN OF CARE LISTED BELOW. Current Visit: No (6) Hypothyroidism Status: Chronic Assessment and plan: SEE PLAN OF CARE LISTED BELOW. Current Visit: No Qualifiers: (7) Obesity Status: Chronic Assessment and plan: SEE PLAN OF CARE LISTED BELOW. Current Visit: No (8) Obstructive sleep apnea Status: Chronic Assessment and plan: SEE PLAN OF CARE LISTED BELOW. Current Visit: No (9) Peripheral neuropathy Status: Chronic Assessment and plan: SEE PLAN OF CARE LISTED BELOW. Current Visit: No Qualifiers: Peripheral neuropathy type: polyneuropathy associated with underlying disease Qualified Code(s): G63 - Polyneuropathy in diseases classified elsewhere (10) angioedema with lisinopril Status: Resolved Assessment and plan: SEE PLAN OF CARE LISTED BELOW. Current Visit: No (11) Essential hypertension Status: Chronic Assessment and plan: SEE PLAN OF CARE LISTED BELOW. Current Visit: No Cardiology - PN: Subj Interval history: FILM FLAT INSPECTOR: DR. MCGRATH SUMMARY: 67 year old WF, PMHx hypertension, diabetes (with neuropathy), MISTI (on CPAP), hypothyroidism, and CAD. Noted allergy to MINDY inhibitors (angioedema). Patient was admitted to [facility] on the afternoon of 03/15 for episode of acute diastolic CHF. Significant blood pressure elevation, 223/116 and required IV Cardene infusion. Echocardiogram with preserved LV systolic function, EF 65%, mild LVH, trace TR with PA pressures 28.3 mmHg. Since admission, she has been started on IV Lasix, and has diuresed very well. Her condition has improved, and she was transferred to telemetry unit on 03/16. Cardiology was asked to see for further assistance of acute diastolic CHF, uncontrolled hypertension. 2016: Patient with no acute hemodynamic changes since transfer to [facility] yesterday. Awake and alert this morning with good appetite. Family member present with her. Continues to diurese well with IV Lasix. BP averaging 140/80 today. No chest pain or tightness. Continues to use supplemental oxygen via nasal cannula and reports she is still having some dyspnea at rest. Today when she went to the restroom she became extremely dyspneic. She is somewhat tearful this morning , and is concerned about her current condition, and is inquiring as to whether or not hospitalization could be due to underlying "heart blockage." Labs reviewed. Creatinine stable and unchanged, 1.3. Electrolytes stable. Cell count stable. Glucose levels greater than 200 yesterday and today. ASSESSMENT/PLAN: 1. ACUTE CHF, DIASTOLIC -patient has preserved LV systolic function. Acute CHF most likely secondary to uncontrolled hypertension and excessive dietary noncompliance on recent vacation. Continue IV diuresis, consider transitioning to PO Lasix. Strict I/O, daily weights, BMP. Still having dyspnea with minimal activity. Will repeat chest x-ray today. Consider cardiac catheterization. We will keep n.p.o. after midnight tonight. 2. HYPERTENSION -uncontrolled hypertension on admission. Required IV Cardene on admit but has since been weaned off. She acknowledged that she does not routinely check her blood pressure at home and does not know how long it has been uncontrolled. BP is improved since admission, and she is now actually borderline hypotensive. Increase Procardia XL to 60 mg by mouth at night. Decrease hydralazine to 50 mg by mouth 3 times daily. No MINDY inhibitor due to history of angioedema. 3. DIABETES -reports this is usually controlled but she does have neuropathy. Hemoglobin A1c 9.4 on admit. Glucose levels uncontrolled, greater than 200. Will defer primary management of this to attending physician. 4. DYSLIPIDEMIA -continue lipid-lowering agent. Review fasting lipid panel. 5. MISTI -continue CPAP. 6. OBESITY -dietary counseling and caloric intake restriction 7. CAD -patient is not having any anginal complaint. Has reportedly undergone previous cardiac catheterization per Dr. Mcgrath "3-4 years ago" with nonobstructive CAD being managed medically. 8. HYPOTHYROID - continue thyroid supplement. 9. NONCOMPLIANCE - reiterated the importance of medical and dietary compliance. Exam (Progress Note) - Constitutional Vitals: Period Temp Pulse Resp BP Sys/David Pulse Ox Last 24 Hr 97.1 F-98.6 F 63-73 16-20 98-178/52-86 92-98 Exam: General: Appears well developed, obese, well nourished, no apparent distress HEENT: Normocephalic, atraumatic Neck: Supple Neck, Midline Trachea, No Bruit, JVD Cardiac: Regular rhythm, systolic murmur, no gallop, no rub Lungs: Clear to auscultation this morning. No Wheeze, No Rhonchi Neuro: Cranial Nerve 2-12 Intact, Motor Function Grossly Intact. Alert and oriented x 3. No tremor appreciated. Abdomen: Soft, Active Bowel Sounds, No Masses, No Pulsations/Bruits. No tenderness. Skin: Normal color, no rash. Warm and dry. Extremities: No Clubbing, No Cyanosis, minimal to no edema of bilateral lower extremities this morning., Normal Upper and Lower extremity pulses Musculoskeletal: No acute abnormality noted Psychiatric: The patient does not appear to be anxious or depressed. Normal affect and mood Result/EKG - Labs CBC & BMP: 03/17/17 03:41 03/17/17 03:41 Lab Results: I have reviewed the past 24 hour labs Labs: Laboratory Results - last 24 hr 03/16/17 03/16/17 03/16/17 11:31 17:10 21:12 WBC RBC Hgb Hct MCV MCH MCHC RDW Plt Count MPV Neut % (Auto) Lymph % (Auto) [place] % (Auto) Eos % (Auto) Baso % (Auto) Neut # (Auto) Lymph # (Auto) [place] # (Auto) Eos # (Auto) Baso # (Auto) Immature Gran % Nucleated RBC % Immature Gran # Nucleated RBCs # Immature Plt Fraction Sodium Potassium Chloride Carbon Dioxide Anion Gap BUN Creatinine GFR Calculation BUN/Creatinine Ratio Glucose POC Glucose 248 H 236 H 201 H Calculated Osmolality Calcium Magnesium 03/17/17 03/17/17 03/17/17 03:41 03:41 03:41 WBC 5.2 RBC 3.81 Hgb 11.1 L Hct 33.3 L MCV 87.4 MCH 29 MCHC 33.3 RDW 12.5 Plt Count 324 MPV 11.3 Neut % (Auto) 62.7 Lymph % (Auto) 17.2 L [place] % (Auto) 13.0 H Eos % (Auto) 4.3 Baso % (Auto) 1.6 H Neut # (Auto) 3.2 Lymph # (Auto) 0.9 L [place] # (Auto) 0.7 Eos # (Auto) 0.2 Baso # (Auto) 0.1 Immature Gran % 1.2 Nucleated RBC % 0.0 Immature Gran # 0.06 Nucleated RBCs # 0.00 Immature Plt Fraction 0.0 Sodium 136 137 Potassium 4.3 4.2 Chloride 97 L 97 L Carbon Dioxide 32 33 H Anion Gap 11.3 11.2 BUN 37 H 36 H Creatinine 1.30 H 1.30 H GFR Calculation 51 51 BUN/Creatinine Ratio 28.00 H 27.00 H Glucose 271 H 267 H POC Glucose Calculated Osmolality 290.0 289.8 Calcium 9.1 9.0 Magnesium 2.5 H 03/17/17 07:09 WBC RBC Hgb Hct MCV MCH MCHC RDW Plt Count MPV Neut % (Auto) Lymph % (Auto) [place] % (Auto) Eos % (Auto) Baso % (Auto) Neut # (Auto) Lymph # (Auto) [place] # (Auto) Eos # (Auto) Baso # (Auto) Immature Gran % Nucleated RBC % Immature Gran # Nucleated RBCs # Immature Plt Fraction Sodium Potassium Chloride Carbon Dioxide Anion Gap BUN Creatinine GFR Calculation BUN/Creatinine Ratio Glucose POC Glucose 207 H Calculated Osmolality Calcium Magnesium - Diagnostic Findings Procedure: Chest x-ray: image reviewed by me, report reviewed by me - EKG EKG results: interpreted by me, no acute changes EKG shows: sinus rhythm Quincy Gamble Jennifer, MD, personally performed the services described in this documentation, ascribed by Melissa Augustin RN in my presence, and it is both accurate and complete 303 .
--- NOTE | 2017-03-17 13:49 | Hospitalist Progress Note ---
Assessment and Plan (1) Acute diastolic (congestive) heart failure Status: Acute Assessment and plan: The patient is improving with diuresis. The patient will require intensive compliance with her antihypertensive regimen to improve her overall prognosis. I discussed this with the patient and her daughter at the bedside. The patient will transition to oral Lasix today and anticipate discharge home tomorrow. Current Visit: Yes (2) Uncontrolled hypertension Status: Acute Current Visit: Yes Hospitalist: Subjective Interval history: The patient has less shortness of breath today. Diuresis continues and today we will transition from IV to oral Lasix. I met with the patient's daughter and the patient in the room. We discussed the patient's etiology of disease, the treatment of congestive heart failure, and instructions for home medications. I emphasized compliance. Exam - Constitutional Vitals: Period Temp Pulse Resp BP Sys/David Pulse Ox Last 24 Hr 97.1 F-98.6 F 63-68 16-20 98-178/52-86 92-100 General appearance: mild distress - Respiratory Respiratory exam: Present: rales (In bilateral bases) - Cardiovascular Cardiovascular exam: Present: regular rate and rhythm - GI/Abdominal GI/Abdominal exam: Present: normal bowel sounds Results - Labs CBC & BMP: 03/17/17 03:41 03/17/17 03:41 Lab Results: I have reviewed the past 24 hour labs
--- NOTE | 2017-03-17 13:52 | Physician Query Form ---
CLICK EDIT DOCUMENT TO SELECT QUERY ANSWER --> OK --> SIGN Ayaka Lamb RN Clinical Recovery Unit Operator W) [phone] (f) [phone] [email or web address]: Make your selection(s) from the choices in EACH section by typing an "x" and enter comments in the comment section. Please use your independent medical judgment in providing your response. This request does not imply that any particular answer is desired or expected. CLINCAL INDICATORS: (Providers should not edit this section) Based on documentation of "Uncontrolled hypertension" BP of 233/126. Documented history of hypertension. Treated with IV Cardene. Note: Hypertensive crises can present as hypertensive urgency or hypertensive emergency. Clarify which, if any of the following, is a more accurate diagnosis reflecting the type and acuity of the documented hypertension: TYPE: ( ) Hypertensive Urgency ( X) Hypertensive Emergency ( ) Uncontrolled chronic hypertension at baseline ( ) Other, please specify: ( ) Clinically unable to determine COMMENTS: Criteria Source - Up to Date (This topic last updated: Sep 11, 2015) HYPERTENSIVE URGENCY: Severe hypertension (usually a diastolic blood pressure above 120 mmHg) in asymptomatic patients is referred to as hypertensive urgency. There is no proven benefit from rapid reduction in blood pressure in asymptomatic patients who have no evidence of acute end-organ damage and are at little short-term risk. HYPERTENSIVE EMERGENCY: Severe hypertension (usually a diastolic blood pressure above 120 mmHg) with evidence of acute end-organ damage is defined as a hypertensive emergency. A hypertensive emergency can be life threatening and requires immediate treatment, usually with parenteral medications in a monitored setting. PLEASE ALSO DOCUMENT RESPONSE IN PROGRESS NOTES AND/OR DISCHARGE SUMMARY Use of terms such as suspected, likely, or probable (associated with a specific diagnosis that is being evaluated, monitored, or treated as if it exists) are acceptable and can be restated in the discharge summary if not ruled out. MTDD
--- NOTE | 2017-03-17 14:23 | XRay Report ---
Exam: XR chest 2V Date: 03/17/2017 12:43 PM Indication: Dyspnea on exertion CHF Comparison: 03/16/2017 Technical: PA lateral Findings: Mild prominence the cardiac silhouette. There is decreased interstitial edema alveolar edema compared to the previous exam. No obvious effusions. Anterolateral marginal osteophytes are present. ASVD is present. External cardiac leads are present. No pneumothorax. Impression: 1. Cardiomegaly with improving aeration with decreasing interstitial alveolar edema and decreased effusions when compared to previous study PROCEDURE INTERPRETED AT [facility] DEPARTMENT OF RADIOLOGY Final Report Signed by: Dr. Víctor Galvez
[2017-03-17] MEDS: cloNIDine 0.1 MG TABLET PO SCH (21:23)
[2017-03-17] MEDS: clonazePAM 0.5 MG TABLET PO SCH (21:23)
[2017-03-18 05:58] LABS: Calcium 9.3 MG/DL (8.5-10.1); Magnesium 2.8 MG/DL (1.8-2.4); Osmolality,Calculated 288.5 MOS/KG (273-304); Potassium 4.2 MMOL/L (3.5-5.1)
[2017-03-18] MEDS ORDERED: diphenhydrAMINE CAP 50 MG CAPSULE ONE (09:48)
[2017-03-18] MEDS ORDERED: DIAZEPAM 5 MG TABLET ONE (09:48)
[2017-03-18] MEDS ORDERED: MAGNESIUM SULF RIDER 2 GM in PREMIX 1 EACH IV PRN (09:54)
[2017-03-18] MEDS ORDERED: diphenhydrAMINE CAP 25 MG CAPSULE PO ONE (09:54)
[2017-03-18] MEDS ORDERED: DIAZEPAM 5 MG TABLET PO ONE (09:54)
[2017-03-18] MEDS ORDERED: POTASSIUM CHLORIDE RIDER 10 MEQ in PREMIX 1 EACH IV PRN (09:54)
[2017-03-18] MEDS ORDERED: SODIUM CHLORIDE 0.45% 1,000 ML IV SCH (10:00)
[2017-03-18] MEDS ORDERED: ASPIRIN 325 MG TABLET ONE (10:03)
--- NOTE | 2017-03-18 10:04 | Cardiology Progress Note ---
Charli Gamble Vanessa, RN, am scribing for, and in the presence of, Doris Mathew MD 10:04. Assessment and Plan - Time spent with patient Time spent with patient: Greater than 30 minutes (1) Acute diastolic (congestive) heart failure Status: Acute Assessment and plan: SEE PLAN OF CARE LISTED BELOW. Current Visit: Yes (2) Uncontrolled hypertension Status: Acute Assessment and plan: SEE PLAN OF CARE LISTED BELOW. Current Visit: Yes (3) Coronary artery disease Status: Chronic Assessment and plan: SEE PLAN OF CARE LISTED BELOW. Current Visit: No (4) Noncompliance with medications Status: Chronic Assessment and plan: SEE PLAN OF CARE LISTED BELOW. Current Visit: No (5) Diabetes mellitus Status: Chronic Assessment and plan: SEE PLAN OF CARE LISTED BELOW. Current Visit: No (6) Hypothyroidism Status: Chronic Assessment and plan: SEE PLAN OF CARE LISTED BELOW. Current Visit: No Qualifiers: (7) Obesity Status: Chronic Assessment and plan: SEE PLAN OF CARE LISTED BELOW. Current Visit: No (8) Obstructive sleep apnea Status: Chronic Assessment and plan: SEE PLAN OF CARE LISTED BELOW. Current Visit: No (9) Peripheral neuropathy Status: Chronic Assessment and plan: SEE PLAN OF CARE LISTED BELOW. Current Visit: No Qualifiers: Peripheral neuropathy type: polyneuropathy associated with underlying disease Qualified Code(s): G63 - Polyneuropathy in diseases classified elsewhere (10) angioedema with lisinopril Status: Resolved Assessment and plan: SEE PLAN OF CARE LISTED BELOW. Current Visit: No (11) Essential hypertension Status: Chronic Assessment and plan: SEE PLAN OF CARE LISTED BELOW. Current Visit: No Cardiology - PN: Subj Interval history: OVER SHORT AND DAMAGE CLERK: DR. MCGRATH SUMMARY: 67 year old WF, PMHx hypertension, diabetes (with neuropathy), MISTI (on CPAP), hypothyroidism, and CAD. Noted allergy to MINDY inhibitors (angioedema). Patient was admitted to [facility] on the afternoon of 03/15 for episode of acute diastolic CHF. Significant blood pressure elevation, 223/116 and required IV Cardene infusion. Echocardiogram with preserved LV systolic function, EF 65%, mild LVH, trace TR with PA pressures 28.3 mmHg. Since admission, she has been started on IV Lasix, and has diuresed very well. Her condition has improved, and she was transferred to telemetry unit on 03/16. Cardiology was asked to see for further assistance of acute diastolic CHF, uncontrolled hypertension. 2016: She continues to have dyspnea on exertion with activities such as brushing her teeth despite blood pressure control. Her edema is improving. We discussed left heart catheterization for definitive diagnosis and she is agreeable. ASSESSMENT/PLAN: 1. ACUTE CHF, DIASTOLIC -patient has preserved LV systolic function. Acute CHF most likely secondary to uncontrolled hypertension and excessive dietary noncompliance on recent vacation. Patient has been transitioned to PO Lasix 80 mg daily. Strict I/O, daily weights, BMP. Repeat chest x-ray yesterday for continued dyspnea with exertion shows decreased alveolar edema and effusions with improving aeration. NPO this morning for possible LHC. 2. HYPERTENSION -uncontrolled hypertension on admission. Required IV Cardene on admit but has since been weaned off. She acknowledged that she does not routinely check her blood pressure at home and does not know how long it has been uncontrolled No MINDY inhibitor due to history of angioedema. 3. DIABETES -reports this is usually controlled but she does have neuropathy. Hemoglobin A1c 9.4 on admit. Glucose levels somewhat improved this morning and are less than 200. Will defer primary management of this to attending physician. 4. DYSLIPIDEMIA -continue lipid-lowering agent. Review fasting lipid panel. 5. MISTI -continue CPAP. 6. OBESITY -dietary counseling and caloric intake restriction 7. CAD -patient is not having any anginal complaint. Has reportedly undergone previous cardiac catheterization per Dr. Mcgrath "3-4 years ago" with nonobstructive CAD being managed medically. Continue dyspnea with minimal exertion post aggressive IV diuresis suspicious for angina. We will proceed with left heart catheterization today per 8. HYPOTHYROID - continue thyroid supplement. 9. NONCOMPLIANCE - reiterated the importance of medical and dietary compliance. Exam (Progress Note) - Constitutional Vitals: Period Temp Pulse Resp BP Sys/David Pulse Ox Last 24 Hr 96.7 F-97.8 F 18-68 16-20 105-143/65-81 93-100 Exam: General: Appears well developed, obese, well nourished, no apparent distress HEENT: Normocephalic, atraumatic Neck: Supple Neck, Midline Trachea, No Bruit, JVD Cardiac: Regular rhythm, systolic murmur, no gallop, no rub Lungs: Clear to auscultation this morning. No Wheeze, No Rhonchi Neuro: Cranial Nerve 2-12 Intact, Motor Function Grossly Intact. Alert and oriented x 3. No tremor appreciated. Abdomen: Soft, Active Bowel Sounds, No Masses, No Pulsations/Bruits. No tenderness. Skin: Normal color, no rash. Warm and dry. Extremities: No Clubbing, No Cyanosis, minimal to no edema of bilateral lower extremities this morning., Normal Upper and Lower extremity pulses Musculoskeletal: No acute abnormality noted Psychiatric: The patient does not appear to be anxious or depressed. Normal affect and mood Result/EKG - Labs CBC & BMP: 03/17/17 03:41 03/18/17 04:16 Lab Results: I have reviewed the past 24 hour labs Labs: Laboratory Results - last 24 hr 03/17/17 03/17/17 03/17/17 11:09 15:19 15:20 Sodium Potassium Chloride Carbon Dioxide Anion Gap BUN Creatinine GFR Calculation BUN/Creatinine Ratio Glucose POC Glucose 280 H < 20 L* 236 H Calculated Osmolality Calcium Magnesium 03/17/17 03/18/17 03/18/17 19:02 04:16 07:07 Sodium 139 Potassium 4.2 Chloride 100 Carbon Dioxide 30 Anion Gap 13.2 BUN 40 H Creatinine 1.10 H GFR Calculation 63 BUN/Creatinine Ratio 36.00 H Glucose 134 H POC Glucose 277 H 167 H Calculated Osmolality 288.5 Calcium 9.3 Magnesium 2.8 H - Diagnostic Findings Procedure: Chest x-ray: image reviewed by me, report reviewed by me (03/17/17:) - EKG EKG results: interpreted by me, no acute changes EKG shows: sinus rhythm I, Doris Mathew MD, personally performed the services described in this documentation, ascribed by Melissa Augustin RN in my presence, and it is both accurate and complete .
[2017-03-18] MEDS ORDERED: ASPIRIN EC 325 MG TABLET PO ONE (10:17)
[2017-03-18] MEDS: INSULIN REGULAR 100 UNIT/ML SUBCUT SCH ×4 (10:42→21:03)
--- NOTE | 2017-03-18 11:05 | Hospitalist Progress Note ---
Assessment and Plan - Time spent with patient Time spent with patient: Less than 30 minutes (1) Acute diastolic (congestive) heart failure Status: Acute Assessment and plan: 03/18/17 - Patient to have scheduled Left Heart Catherization today. Will follow up with Cardiology after heart cath completed for further recommendations with care. Will repeat a.m. labs continue to monitor Current Visit: Yes (2) Uncontrolled hypertension Status: Acute Assessment and plan: 03/18/17 BP better controlled Will continue current medications Will follow cardiology further recommendations of care Current Visit: Yes Hospitalist: Subjective Interval history: Ms Espinoza seen and chart reviewed. She verbalized feeling a little better this morning. She reports that she is still having shortness of breath with exertion and associated fatigue. She denies chest pain, sweating, fever, or chills. She is waiting to go to the Heart Scrub Wheel Operator this a.m. for scheduled left heart cath. She is not in any acute distress at time of exam and family at bedside. Exam - Constitutional Vitals: Period Temp Pulse Resp BP Sys/David Pulse Ox Last 24 Hr 96.7 F-97.8 F 18-68 16-20 105-143/65-81 93-100 General appearance: normal weight, no acute distress, over weight - Head Head exam: Present: normal inspection - Eye Eye exam: Present: EOMI Pupils: Present: KAZ - Neck Neck exam: Absent: thyromegaly - Respiratory Respiratory exam: Present: clear to auscultation bilaterally. Absent: rhonchi, stridor, wheezes - Cardiovascular Cardiovascular exam: Present: regular rate and rhythm - GI/Abdominal GI/Abdominal exam: Present: normal bowel sounds, soft. Absent: tenderness, rebound - Extremities Exam Extremities exam: Present: full ROM, edema (trace edema) - Neurological Exam Neurological exam: Present: alert, oriented X3 - Psychiatric Psychiatric exam: Present: normal affect, normal mood. Absent: agitated, anxious - Skin Skin exam: Present: normal color, warm, dry Results - Labs CBC & BMP: 03/17/17 03:41 03/18/17 04:16 Lab Results: I have reviewed the past 24 hour labs Labs: Magnesium 2.8
[2017-03-18] MEDS: FUROSEMIDE 80 MG TABLET PO SCH (11:53)
[2017-03-18] MEDS: CARVEDILOL 25 MG TABLET PO SCH ×2 (11:53→21:02)
[2017-03-18] MEDS ORDERED: MEPERIDINE 25 MG/1 ML VIAL ONE (12:15)
[2017-03-18] MEDS ORDERED: MIDAZOLAM 2 MG/2 ML VIAL ONE (12:15)
[2017-03-18] MEDS ORDERED: LIDOCAINE 1% 20 ML VIAL ONE (12:15)
[2017-03-18] MEDS ORDERED: HEPARIN 5,000 UNIT/1 ML VIAL ONE (12:50)
--- NOTE | 2017-03-18 13:23 | Operative Note ---
Date of procedure: 03/18/17 Procedure Preformed: Left heart cath Coronary angiography Left ventriculography Angiogram of the right femoral artery Angio-Seal of the right femoral artery-successful Surgeon / Physician: Pravin Clement Catcher Helper: Amara Whipple Post-op diagnosis: same (Progressive dyspnea on exertion, diastolic heart failure, suspicion for CAD contributing to some of her symptoms) Findings: Impression: No significant obstructive coronary disease-minimal luminal irregularities Right dominant coronary arterial system Normal global/regional left ventricular systolic function, LVEF greater than 55% Normal LVEDP, 5 mmHg Angiogram of the right femoral artery Angio-Seal of the right femoral artery-successful Plan/recommendations: Based on the study, the patient does not have fixed, significant, obstructive coronary disease. Also, her LVEF is normal. Dr. Paulson will continue to treat for diastolic heart failure. The patient will have risk factors optimized. The patient will be on antiplatelet medications to include aspirin indefinitely . Follow-up will be scheduled. Addenda: I saw the patient post-cath. the groin puncture site and distal pulse are stable. vital signs are stable and the patient will be observed closely overnight. Specimens: none sent Estimated blood loss: minimal Condition: stable Anesthesia: local, conscious sedation Disposition: floor
[2017-03-18] MEDS ORDERED: ACETAMINOPHEN/CODEINE 300-30 MG TABLET PO PRN (13:26)
[2017-03-18] MEDS: VENLAFAXINE 100 MG TABLET PO SCH (14:40)
[2017-03-18] MEDS: GABAPENTIN 300 MG CAPSULE PO SCH ×2 (14:42→14:44)
[2017-03-18] MEDS: INSULIN NPH/REGULAR 70/30 100 UNIT/ML SUBCUT SCH ×2 (14:42→21:03)
[2017-03-18] MEDS: GEMFIBROZIL 600 MG TABLET PO SCH ×2 (14:42→16:45)
[2017-03-18] MEDS: FLUoxetine 20 MG CAPSULE PO SCH ×2 (14:42→21:06)
[2017-03-18] MEDS: rOPINIRole 1 MG TABLET PO SCH ×2 (14:42→21:02)
--- NOTE | 2017-03-18 20:08 | Cardiology Operative Report ---
Date of Procedure:: 03/18/17 Post-op diagnosis: same (Progressive dyspnea on exertion, diastolic heart failure, suspicion for CAD contributing to some of her symptoms) Procedure: Date of procedure: 03/18/17 Procedure Preformed: Left heart cath Coronary angiography Left ventriculography Angiogram of the right femoral artery Angio-Seal of the right femoral artery-successful Surgeon / Physician: Pravin Clement Orange Picking Supervisor: Amara Whipple Post-op diagnosis: same (Progressive dyspnea on exertion, diastolic heart failure, suspicion for CAD contributing to some of her symptoms) procedure: The patient was prepped and draped in usual manner. Entered the right femoral artery via the Seldinger technique. I used a sheath and then used a JL4 and engaged left coronary. Multiple views were taken. I then exchanged for a JR4. Multiple views of the right coronary were taken. I then exchanged for an angled pigtail. I crossed the valve. Left ventricular end-diastolic pressures measured. Left ventriculography was done. Left ventricle pullback was done. The catheters were then removed from the patient. Angiogram of the right femoral artery was done either from the follow-through from the LV gram or a separate injection in the right femoral artery. Angio-Seal was done and it was successful. Please see the cath data sheets for the details of catheters used. Complications: None Hemodynamic data: LVEDP was 5 mmHg. Angiographic data: The left main coronary was large and had minimal luminal irregularities. The left anterior descending artery was large and had minimal luminal irregularities The left circumflex system was moderate to large and had minimal luminal irregularities The right coronary artery was large in size, dominant vessel with the PDA. There were minimal luminal irregularities LEVY left ventriculography revealed normal global/regional left ventricular systolic function. Overall ejection fraction was at least 55%. There is no significant mitral regurgitation. Angiogram of the right femoral artery revealed the puncture site to be in a large vessel, above the bifurcation. It was suitable for Angio-Seal. Impression: No significant obstructive coronary disease-minimal luminal irregularities Right dominant coronary arterial system Normal global/regional left ventricular systolic function, LVEF greater than 55% Normal LVEDP, 5 mmHg Angiogram of the right femoral artery Angio-Seal of the right femoral artery-successful Plan/recommendations: Based on the study, the patient does not have fixed, significant, obstructive coronary disease. Also, her LVEF is normal. Dr. Paulson will continue to treat for diastolic heart failure. The patient will have risk factors optimized. The patient will be on antiplatelet medications to include aspirin indefinitely . Follow-up will be scheduled. Addenda: I saw the patient post-cath. the groin puncture site and distal pulse are stable. vital signs are stable and the patient will be observed closely overnight. Specimens: none sent Estimated blood loss: minimal Condition: stable Anesthesia: local, conscious sedation Disposition: floor Additional CC's: Doris Mathew Anesthesia: local, minimal conscious sedation Surgeon / Physician: Pravin Clement Orange Picking Supervisor: other Estimated blood loss: minimal Specimens: none sent Condition: stable Disposition: floor
[2017-03-18] MEDS: cloNIDine 0.1 MG TABLET PO SCH (21:02)
[2017-03-18] MEDS: clonazePAM 0.5 MG TABLET PO SCH (21:02)
[2017-03-19 05:47] LABS: Basophils # 0.1 10*3/uL (0.0-0.2); Basophils % 1.6 % (0.0-0.8); Eosinophils # 0.4 10*3/uL (0.0-0.87); Eosinophils % 7.2 % (0.00-10.9); Hemoglobin 11.2 GM/DL (12.0-16.0); Immature Granulocytes Absolute 0.05 #; Lymphocytes # 1.2 10*3/uL (1.4-4.0); Lymphocytes % 23.9 % (21.3-54.2); Mean Corpuscular HGB Conc 32.9 GM/DL (32-36); Mean Corpuscular Hemoglobin 29 PG (27-34); Mean Corpuscular Volume 88.1 FL (87-102); Mean Platelet Volume 11.5 FL (9.6-12.0); Monocytes # 0.7 10*3/uL (0.11-0.8); Monocytes % 12.7 % (1.7-12.7); Neutrophils # 2.7 10*3/uL (1.4-7.4); Neutrophils % 53.6 % (38.7-73.9); Platelet Count 371 T/CUMM (130-400); Red Blood Count 3.86 MC/CUMM (3.8-5.5); Red Cell Distribution Width 12.4 % (9.3-17.3); White Blood Count 5.1 T/CUMM (4-12)
[2017-03-19 06:11] LABS: Calcium 9.1 MG/DL (8.5-10.1); Magnesium 2.6 MG/DL (1.8-2.4); Osmolality,Calculated 283.7 MOS/KG (273-304); Potassium 4.5 MMOL/L (3.5-5.1)
[2017-03-19] MEDS: INSULIN REGULAR 100 UNIT/ML SUBCUT SCH ×3 (08:16→17:24)
[2017-03-19] MEDS: VENLAFAXINE 100 MG TABLET PO SCH (08:51)
[2017-03-19] MEDS: FLUoxetine 20 MG CAPSULE PO SCH (08:51)
[2017-03-19] MEDS: GEMFIBROZIL 600 MG TABLET PO SCH ×2 (08:51→17:25)
[2017-03-19] MEDS: rOPINIRole 1 MG TABLET PO SCH (08:51)
[2017-03-19] MEDS: CARVEDILOL 25 MG TABLET PO SCH (08:52)
[2017-03-19] MEDS: GABAPENTIN 300 MG CAPSULE PO SCH ×2 (08:52→15:58)
[2017-03-19] MEDS: FUROSEMIDE 80 MG TABLET PO SCH (08:52)
--- NOTE | 2017-03-19 08:52 | Discharge Summary ---
Hospital Course - Hospital Course Hospital Course: The patient was admitted to the hospital with acute on chronic diastolic heart failure manifest with pulmonary edema and peripheral edema. The patient had uncontrolled essential hypertension and was not taking medication on a regular basis. Echocardiogram revealed normal ejection fraction. The patient had cardiology evaluation. The patient was initially diuresed with IV Lasix and then we made transition to oral regimen and control blood pressure as well. Dr. Mathew recommended coronary arteriogram which was performed below the day prior to discharge. There was no evidence of obstructive coronary disease. The patient was observed overnight and renal function remains stable the following day. The patient is ready for discharge home. On the date of discharge, chest is clear and heart has regular rate and rhythm. Abdomen is soft Patient medications were reconciled upon admission, and again at the time of discharge. The patient was screened for tobacco use and found to be a occasional smoker. The patient was given 4 minutes of tobacco avoidance education. The patient's medical decsion maker is themself, and when asked, they asked to be Full code. Discharge Time was 33 minutes, including final examination, evaluation and planning, education, reconciliation of medications, writing prescriptions, coordinating care with correctional counselor/case manager, and preparing discharge documentation. - Time spent with patient Time with patient DS: Greater than 30 minutes Diagnosis - Discharge Diagnosis (1) Acute diastolic (congestive) heart failure Status: Acute (2) Uncontrolled hypertension Status: Acute Discharge Plan - Discharge Data Disposition: Disch To Home/Self Care Condition at Discharge: Stable Discharge Diet: diabetic diet Activity: resume usual activities as tolerated - Discharge Medications New FLUoxetine [PROzac] 20 mg PO BID #100 capsule Furosemide Tab [Lasix Tab] 80 mg PO DAILY #60 tablet NIFEdipine XL TAB [Procardia Xl] 60 mg PO BEDTIME #60 tablet Continue clonazePAM [Klonopin] 0.5 tablet PO BEDTIME Gemfibrozil [Lopid] 600 mg PO BIDAC Gabapentin Cap/Tab [Neurontin Cap/Tab] 300 mg PO QAM Carvedilol [Coreg] 25 mg PO BID #100 cloNIDine TAB [Catapres Tab] 0.1 mg PO BEDTIME #60 hydrALAZINE TAB [Apresoline Tab] 100 mg PO TID #100 Gabapentin 300 mg PO BEDTIME Ropinirole HCl [Requip] 6 mg PO BID Venlafaxine HCl [Effexor] 25 mg PO DAILY metFORMIN [Glucophage] 1,000 mg PO BID W/MEALS #100 Changed Insulin NPH Hum/Reg Insulin Hm [NovoLIN 70/30] 30 unit SUBCUT BID W/MEALS 90 Days Discontinued Furosemide Tab [Lasix Tab] 40 mg PO DAILY Insulin NPH Hum/Reg Insulin Hm [NovoLIN 70/30] 30 unit SUBCUT AC LUNCH - Follow Up or Referral Follow Up: Your,PCP [Other] - Forms/Instructions Exam - Constitutional Vitals: Period Temp Pulse Resp BP Sys/David Pulse Ox Last 24 Hr 96.5 F-97.6 F 59-81 14-18 102-153/51-80 94-100 Discharge Results Procedures and tests throughout hospitalization: Pending Orders 03/15/17 11:42 Blood Culture Stat Labs on day of discharge: Labs from last 24 hours 03/19/17 03/19/17 03/19/17 07:58 03:40 03:40 WBC 5.1 RBC 3.86 Hgb 11.2 L Hct 34.0 L MCV 88.1 MCH 29 MCHC 32.9 RDW 12.4 Plt Count 371 MPV 11.5 Neut % (Auto) 53.6 Lymph % (Auto) 23.9 [place] % (Auto) 12.7 Eos % (Auto) 7.2 Baso % (Auto) 1.6 H Neut # (Auto) 2.7 Lymph # (Auto) 1.2 L [place] # (Auto) 0.7 Eos # (Auto) 0.4 Baso # (Auto) 0.1 Immature Gran % 1.0 Nucleated RBC % 0.0 Immature Gran # 0.05 Nucleated RBCs # 0.00 Immature Plt Fraction 0.0 Sodium 138 Potassium 4.5 Chloride 100 Carbon Dioxide 33 H Anion Gap 9.5 BUN 36 H Creatinine 1.10 H GFR Calculation 63 BUN/Creatinine Ratio 32.00 H Glucose 111 H POC Glucose 138 H Calculated Osmolality 283.7 Calcium 9.1 Magnesium 2.6 H 03/18/17 03/18/17 03/18/17 19:13 14:59 11:03 WBC RBC Hgb Hct MCV MCH MCHC RDW Plt Count MPV Neut % (Auto) Lymph % (Auto) [place] % (Auto) Eos % (Auto) Baso % (Auto) Neut # (Auto) Lymph # (Auto) [place] # (Auto) Eos # (Auto) Baso # (Auto) Immature Gran % Nucleated RBC % Immature Gran # Nucleated RBCs # Immature Plt Fraction Sodium Potassium Chloride Carbon Dioxide Anion Gap BUN Creatinine GFR Calculation BUN/Creatinine Ratio Glucose POC Glucose 370 H 246 H 190 H Calculated Osmolality Calcium Magnesium Preliminary micro results at discharge 03/15/17 11:42 Blood Culture - Preliminary Blood No growth at 3 days 03/15/17 11:42 Blood Culture - Preliminary Blood No growth at 3 days DS: Provider Date of admission: 03/15/17 09:29 Primary care physician: James Pang DO Attending physician on admission: Cyril Reid MD Consults: 03/15/17 10:38 Consult to Pastoral Services [CONS] Routine Comment: Pastoral Screen: Request Certified Surgical First Assistant Visit Pastoral Screen Source of Request: Patient 03/15/17 11:13 Consult to Physician [CONS] Routine Comment: Consulting Provider: Phu Laboy When should Consulting Provider be notified: Now Discharging clinician: Rolan Yung MD
[2017-03-19] MEDS: INSULIN NPH/REGULAR 70/30 100 UNIT/ML SUBCUT SCH (12:25)
[2017-03-19 16:52] VITALS: BP 143/78
--- NOTE | 2017-03-19 16:57 | Cardiology Progress Note ---
Charli Gamble Vanessa, RN, am scribing for, and in the presence of, Doris Mathew MD 16:56. Assessment and Plan - Time spent with patient Time spent with patient: Greater than 30 minutes (1) Acute diastolic (congestive) heart failure Status: Acute Assessment and plan: SEE PLAN OF CARE LISTED BELOW. Current Visit: Yes (2) Uncontrolled hypertension Status: Acute Assessment and plan: SEE PLAN OF CARE LISTED BELOW. Current Visit: Yes (3) Coronary artery disease Status: Chronic Assessment and plan: SEE PLAN OF CARE LISTED BELOW. Current Visit: No (4) Noncompliance with medications Status: Chronic Assessment and plan: SEE PLAN OF CARE LISTED BELOW. Current Visit: No (5) Diabetes mellitus Status: Chronic Assessment and plan: SEE PLAN OF CARE LISTED BELOW. Current Visit: No (6) Hypothyroidism Status: Chronic Assessment and plan: SEE PLAN OF CARE LISTED BELOW. Current Visit: No Qualifiers: (7) Obesity Status: Chronic Assessment and plan: SEE PLAN OF CARE LISTED BELOW. Current Visit: No (8) Obstructive sleep apnea Status: Chronic Assessment and plan: SEE PLAN OF CARE LISTED BELOW. Current Visit: No (9) Peripheral neuropathy Status: Chronic Assessment and plan: SEE PLAN OF CARE LISTED BELOW. Current Visit: No Qualifiers: Peripheral neuropathy type: polyneuropathy associated with underlying disease Qualified Code(s): G63 - Polyneuropathy in diseases classified elsewhere (10) angioedema with lisinopril Status: Resolved Assessment and plan: SEE PLAN OF CARE LISTED BELOW. Current Visit: No (11) Essential hypertension Status: Chronic Assessment and plan: SEE PLAN OF CARE LISTED BELOW. Current Visit: No Cardiology - PN: Subj Interval history: VIDEO MANAGER: DR. MCGRATH SUMMARY: 67 year old WF, PMHx hypertension, diabetes (with neuropathy), MISTI (on CPAP), hypothyroidism, and CAD. Noted allergy to MINDY inhibitors (angioedema). Patient was admitted to [facility] on the afternoon of 03/15 for episode of acute diastolic CHF. Significant blood pressure elevation, 223/116 and required IV Cardene infusion. Echocardiogram with preserved LV systolic function, EF 65%, mild LVH, trace TR with PA pressures 28.3 mmHg. Since admission, she has been started on IV Lasix, and has diuresed very well. Her condition has improved, and she was transferred to telemetry unit on 03/16. Cardiology was asked to see for further assistance of acute diastolic CHF, uncontrolled hypertension. Patient has continued to improve hemodynamically, but she continued to have some dyspnea on exertion with minimal activities despite achieving adequate blood pressure control. Subsequently, it was elected to undergo left heart catheterization for definitive diagnosis. Cardiac cath on 03/[address] Clement demonstrated minimal luminal irregularities but no significant obstructive coronary disease, a normal global LV systolic function, EF greater than 55%. 2016: She is not having any chest pain. Dyspnea is improved. ASSESSMENT/PLAN: 1. ACUTE CHF, DIASTOLIC -patient has preserved LV systolic function. Acute CHF most likely secondary to uncontrolled hypertension and excessive dietary noncompliance on recent vacation. Continue Lasix 80 mg PO daily at discharge. 2. HYPERTENSION -uncontrolled hypertension on admission. Required IV Cardene on admit but has since been weaned off. She acknowledged that she does not routinely check her blood pressure at home and does not know how long it has been uncontrolled No MINDY inhibitor due to history of angioedema. Continue Procardia XL 60 mg PO nightly at discharge. Patient will monitor blood pressure at home, keep a log of these, and bring to follow-up appointment. 3. DIABETES -reports this is usually controlled but she does have neuropathy. Hemoglobin A1c 9.4 on admit. Glucose levels somewhat improved this morning and are less than 200. Will defer primary management of this to attending physician. 4. DYSLIPIDEMIA -continue lipid-lowering agent. Review fasting lipid panel. 5. MISTI -continue CPAP at discharge. 6. OBESITY -dietary counseling and caloric intake restriction 7. CAD -patient is not having any anginal complaint. Has reportedly undergone previous cardiac catheterization per Dr. Mcgrath "3-4 years ago" with nonobstructive CAD being managed medically. Left heart catheterization on 03/18 for continue dyspnea on exertion despite diuresis and adequate BP control. Cardiac cath negative for obstructive CAD or other etiology of symptoms. Please see full cath report for details. Maximize medical management at discharge. 8. HYPOTHYROID - continue thyroid supplement. 9. NONCOMPLIANCE - reiterated the importance of medical and dietary compliance. Exam (Progress Note) - Constitutional Vitals: Period Temp Pulse Resp BP Sys/David Pulse Ox Last 24 Hr 96.5 F-97.6 F 59-81 14-18 102-153/51-80 94-100 Exam: General: Appears well developed, obese, well nourished, no apparent distress HEENT: Normocephalic, atraumatic Neck: Supple Neck, Midline Trachea, No Bruit, no JVD. No tenderness. Cardiac: Regular rhythm, systolic murmur, no gallop, no rub Lungs: Clear to auscultation this morning. No Wheeze, No Rhonchi Neuro: Cranial Nerve 2-12 Intact, Motor Function Grossly Intact. Alert and oriented x 3. No tremor appreciated. Abdomen: Soft, Active Bowel Sounds, No Masses, No Pulsations/Bruits. No tenderness. Obese abdomen. Skin: Normal color, no rash. Warm and dry, intact. Extremities: No Clubbing, No Cyanosis, trace edema, nonpitting of bilateral lower extremities this morning., Normal Upper and Lower extremity pulses. Other : RFA cath site-groin is soft, no hematoma, no bruit, and distal pulses are strong and palpable bilaterally. Musculoskeletal: No acute abnormality noted. Full range of motion. No myalgia or arthralgia. Psychiatric: The patient does not appear to be anxious or depressed. Normal affect and mood Result/EKG - Labs CBC & BMP: 03/19/17 03:40 03/19/17 03:40 Lab Results: I have reviewed the past 24 hour labs Labs: Laboratory Results - last 24 hr 03/18/17 03/18/17 03/18/17 11:03 14:59 19:13 WBC RBC Hgb Hct MCV MCH MCHC RDW Plt Count MPV Neut % (Auto) Lymph % (Auto) [place] % (Auto) Eos % (Auto) Baso % (Auto) Neut # (Auto) Lymph # (Auto) [place] # (Auto) Eos # (Auto) Baso # (Auto) Immature Gran % Nucleated RBC % Immature Gran # Nucleated RBCs # Immature Plt Fraction Sodium Potassium Chloride Carbon Dioxide Anion Gap BUN Creatinine GFR Calculation BUN/Creatinine Ratio Glucose POC Glucose 190 H 246 H 370 H Calculated Osmolality Calcium Magnesium 03/19/17 03/19/17 03/19/17 03:40 03:40 07:58 WBC 5.1 RBC 3.86 Hgb 11.2 L Hct 34.0 L MCV 88.1 MCH 29 MCHC 32.9 RDW 12.4 Plt Count 371 MPV 11.5 Neut % (Auto) 53.6 Lymph % (Auto) 23.9 [place] % (Auto) 12.7 Eos % (Auto) 7.2 Baso % (Auto) 1.6 H Neut # (Auto) 2.7 Lymph # (Auto) 1.2 L [place] # (Auto) 0.7 Eos # (Auto) 0.4 Baso # (Auto) 0.1 Immature Gran % 1.0 Nucleated RBC % 0.0 Immature Gran # 0.05 Nucleated RBCs # 0.00 Immature Plt Fraction 0.0 Sodium 138 Potassium 4.5 Chloride 100 Carbon Dioxide 33 H Anion Gap 9.5 BUN 36 H Creatinine 1.10 H GFR Calculation 63 BUN/Creatinine Ratio 32.00 H Glucose 111 H POC Glucose 138 H Calculated Osmolality 283.7 Calcium 9.1 Magnesium 2.6 H - EKG EKG results: interpreted by me, no acute changes EKG shows: sinus rhythm Quality Measures - VTE Contraindication to Pharmacological VTE Prophylaxis: High Risk of Bleeding Specialty Discharge - Follow Up or Referrals Follow up with: Your,PCP [Other] Doris Mathew MD [Physician] - 04/02/17 8:20 am (Follow up appointment with Dr. Mathew at [facility] in 2-3 weeks with EKG. Patient will keep blood pressure log and will bring with her to follow up appointment with Dr. Mathew.) IQuincy Jennifer, MD, personally performed the services described in this documentation, ascribed by Melissa Augustin RN in my presence, and it is both accurate and complete 656 .
== END 2017-03-19 17:24 | disposition home or self-care (01) | DRG 287 ==
LOC: N.ED 07:42 → N.EDINP 09:29 → SUATTDRO 09:29 → N.CC 10:00 → N.TELES 03-16 10:01
PROVIDERS: ADMIT Internal Medicine; ATTEND Internal Medicine
PROC: CLCCHCL (ICD-10-PCS; 2017-03-18 10:45)

== ENCOUNTER 2019-09-05 16:28 | Observation (INO) ==
[2019-09-05 17:08] LABS: Basophils # 0.1 10*3/uL (0.0-0.2); Basophils % 1.5 % (0.0-0.8); Eosinophils # 0.7 10*3/uL (0.0-0.87); Eosinophils % 9.2 % (0.00-10.9); Hematocrit 35.4 VOL% (35.7-47.0); Hemoglobin 11.7 GM/DL (12.0-16.0); Immature Granulocytes % 0.7 %; Immature Granulocytes Absolute 0.05 #; Lymphocytes # 1.6 10*3/uL (1.4-4.0); Lymphocytes % 21.8 % (21.3-54.2); Mean Corpuscular HGB Conc 33.1 GM/DL (32-36); Mean Corpuscular Volume 90.1 FL (87-102); Mean Platelet Volume 10.7 FL (9.6-12.0); Monocytes % 8.6 % (1.7-12.7); Neutrophils % 58.2 % (38.7-73.9); Platelet Count 335 T/CUMM (130-400); Red Blood Count 3.93 MC/CUMM (3.8-5.5); Red Cell Distribution Width 12.8 % (9.3-17.3); White Blood Count 7.2 T/CUMM (4-12)
[2019-09-05 17:34] LABS: Alanine Aminotransferase 30 U/L (13-56); Albumin 3.8 G/DL (3.4-5.0); Alkaline Phosphatase 122 U/L (45-117); Aspartate Amino Transferase 24 U/L (0-37); Bilirubin,Total < 0.39 MG/DL (0.2-1.0); Blood Urea Nitrogen 30 MG/DL (7-18); Calcium 10.2 MG/DL (8.5-10.1); Estimated Glom Filtration Rate 50 ML/MIN; Glucose 170 MG/DL (74-106); Osmolality,Calculated 282.8 MOS/KG (273-304); Total Protein 7.7 G/DL (6.4-8.3)
[2019-09-05] MEDS ORDERED: hydrALAZINE 20 MG/1 ML VIAL ONE (19:18)
[2019-09-05] MEDS ORDERED: hydrALAZINE 20 MG/1 ML VIAL IV STA (19:21)
[2019-09-05 20:28] LABS: Amylase 69 U/L (25-115); Troponin I < 0.015 NG/ML (0.00-0.045)
[2019-09-05] MEDS ORDERED: fentaNYL 100 MCG/2 ML VIAL ONE (20:59)
[2019-09-05] MEDS ORDERED: fentaNYL 100 MCG/2 ML VIAL IV STA (21:03)
[2019-09-05] MEDS ORDERED: METOPROLOL TARTRATE 5 MG/5 ML VIAL IV STA (21:28)
[2019-09-05] MEDS ORDERED: METOPROLOL TARTRATE 5 MG/5 ML VIAL IV ONE (21:28)
[2019-09-05] MEDS ORDERED: DEXTROSE 50% 25 GM/50 ML SYRINGE IV PRN (22:23)
[2019-09-05] MEDS ORDERED: DEXTROSE 50% 25 GM/50 ML VIAL IV PRN (22:23)
[2019-09-05] MEDS ORDERED: GLUCAGON 1 MG VIAL IM PRN (22:23)
[2019-09-05] MEDS ORDERED: ONDANSETRON 4 MG/2 ML VIAL IV PRN (22:23)
[2019-09-05] MEDS ORDERED: hydrALAZINE 20 MG/1 ML VIAL IV PRN (22:23)
[2019-09-05] MEDS ORDERED: KETOROLAC 30 MG/1 ML VIAL IV ONE (22:29)
[2019-09-05] MEDS ORDERED: HYDROmorphone 2 MG/1 ML VIAL IV PRN (22:34)
[2019-09-05] MEDS ORDERED: CYCLOBENZAPRINE 10 MG TABLET PO STA (22:35)
[2019-09-06] MEDS: GABAPENTIN 300 MG CAPSULE PO SCH ×3 (00:57→14:59)
[2019-09-06] MEDS: carvediloL 25 MG TABLET PO SCH ×3 (00:57→17:03)
[2019-09-06] MEDS ORDERED: rOPINIRole 4 MG TABLET PO ONE (01:07)
[2019-09-06 06:35] LABS: Basophils # 0.1 10*3/uL (0.0-0.2); Basophils % 1.2 % (0.0-0.8); Eosinophils # 0.5 10*3/uL (0.0-0.87); Eosinophils % 7.4 % (0.00-10.9); Hematocrit 34.5 VOL% (35.7-47.0); Hemoglobin 11.2 GM/DL (12.0-16.0); Immature Granulocytes % 0.6 %; Immature Granulocytes Absolute 0.04 #; Lymphocytes # 1.2 10*3/uL (1.4-4.0); Lymphocytes % 15.8 % (21.3-54.2); Mean Corpuscular HGB Conc 32.5 GM/DL (32-36); Mean Corpuscular Volume 90.8 FL (87-102); Mean Platelet Volume 11.4 FL (9.6-12.0); Monocytes % 9.4 % (1.7-12.7); Neutrophils % 65.6 % (38.7-73.9); Platelet Count 334 T/CUMM (130-400); Red Cell Distribution Width 13.1 % (9.3-17.3); White Blood Count 7.3 T/CUMM (4-12)
[2019-09-06 06:52] LABS: Albumin 3.4 G/DL (3.4-5.0); Bilirubin,Total 0.4 MG/DL (0.2-1.0); Calcium 9.5 MG/DL (8.5-10.1); Osmolality,Calculated 285.8 MOS/KG (273-304); Total Protein 7.1 G/DL (6.4-8.3)
[2019-09-06] MEDS ORDERED: LIDOCAINE 5% PATCH TRANSDERM SCH (09:00)
[2019-09-06] MEDS ORDERED: IBUPROFEN 400 MG TABLET PO SCH (09:00)
[2019-09-06] MEDS: INSULIN REGULAR 100 UNIT/ML SUBCUT SCH ×4 (09:16→20:50)
[2019-09-06] MEDS: buPROPion XL 150 MG TABLET PO SCH (09:17)
[2019-09-06] MEDS: ESCITALOPRAM 10 MG TABLET PO SCH (09:17)
[2019-09-06] MEDS: amLODIPine 5 MG TABLET PO SCH (09:17)
[2019-09-06] MEDS: gemfibroziL 600 MG TABLET PO SCH ×2 (09:17→17:03)
[2019-09-06] MEDS: LOSARTAN 50 MG TABLET PO SCH (09:17)
[2019-09-06] MEDS: CYCLOBENZAPRINE 10 MG TABLET PO SCH ×3 (09:17→20:48)
[2019-09-06] MEDS: hydroCHLOROthiazide 25 MG TABLET PO SCH (09:17)
[2019-09-06] MEDS: PANTOPRAZOLE 40 MG TABLET PO SCH (09:18)
[2019-09-06 10:07] LABS: Apearance,Urine CLEAR (Clear); Bacteria,Urine Occasional /HPF (Few); Bilirubin,Urine Negative (Negative); Blood, Urine Negative (Negative); Glucose,Urine (UA) 50 mg/dL (Negative); Hyaline Casts,Urine 7 /LPF (0-3); Ketones,Urine Negative (Negative); Mucus,Urine Occasional /LPF (Occasional); Nitrite,Urine Negative (Negative); Protein,Urine 100 MG/DL; RBC,Urine 1 /HPF (0-4); Squamous Epithelial Cell,Urine Occasional /HPF (0-10); Urine Color Yellow (Yellow); Urine Specific Gravity 1.013 (1.001-1.035); Urine Urobilinogen < 2.0 EU/DL (0.2-1.0); WBC,Urine 5 /HPF (0-6)
[2019-09-06] MEDS ORDERED: IBUPROFEN 600 MG TABLET PO PRN (10:22)
[2019-09-06] MEDS: DICLOFENAC 1.3% PATCH 5/PACK TRANSDERM SCH (12:40)
[2019-09-06] MEDS ORDERED: ALBUTEROL/IPRATROPIUM 3 ML NEB RESP TX PRN (13:45)
[2019-09-06 14:47] LABS: Troponin I 0.054 NG/ML (0.00-0.045)
[2019-09-06] MEDS ORDERED: rOPINIRole 4 MG TABLET PO SCH (19:00)
[2019-09-06] MEDS ORDERED: ENOXAPARIN 40 MG/0.4 ML SYRINGE SUBCUT SCH (21:00)
[2019-09-07 05:28] LABS: Basophils # 0.1 10*3/uL (0.0-0.2); Basophils % 1.7 % (0.0-0.8); Eosinophils # 0.7 10*3/uL (0.0-0.87); Eosinophils % 13.2 % (0.00-10.9); Hematocrit 35.8 VOL% (35.7-47.0); Hemoglobin 11.5 GM/DL (12.0-16.0); Immature Granulocytes % 0.6 %; Immature Granulocytes Absolute 0.03 #; Lymphocytes # 1.4 10*3/uL (1.4-4.0); Lymphocytes % 26.2 % (21.3-54.2); Mean Corpuscular HGB Conc 32.1 GM/DL (32-36); Mean Corpuscular Volume 91.3 FL (87-102); Mean Platelet Volume 10.7 FL (9.6-12.0); Monocytes % 9.6 % (1.7-12.7); Neutrophils % 48.7 % (38.7-73.9); Platelet Count 312 T/CUMM (130-400); Red Blood Count 3.92 MC/CUMM (3.8-5.5); Red Cell Distribution Width 13.2 % (9.3-17.3); White Blood Count 5.2 T/CUMM (4-12)
[2019-09-07 05:49] LABS: Eosinophils 12 % (0-10); Lymphocytes 26 % (20-55); Segmented Neutrophils 54 % (50-85); Total Cells Counted 100
[2019-09-07 05:50] LABS: Hypochromasia 1+; Platelet Estimate Adequate
[2019-09-07 05:54] LABS: Troponin I 0.044 NG/ML (0.00-0.045)
[2019-09-07 05:57] LABS: Risk Ratio 4.07
[2019-09-07 05:57] LABS: Calcium 9.5 MG/DL (8.5-10.1); Osmolality,Calculated 286.8 MOS/KG (273-304)
[2019-09-07] MEDS: INSULIN REGULAR 100 UNIT/ML SUBCUT SCH ×2 (08:55→12:39)
[2019-09-07] MEDS: amLODIPine 5 MG TABLET PO SCH (08:56)
[2019-09-07] MEDS: ESCITALOPRAM 10 MG TABLET PO SCH (08:56)
[2019-09-07] MEDS: buPROPion XL 150 MG TABLET PO SCH (08:56)
[2019-09-07] MEDS: CYCLOBENZAPRINE 10 MG TABLET PO SCH (08:56)
[2019-09-07] MEDS: carvediloL 25 MG TABLET PO SCH (08:56)
[2019-09-07] MEDS: gemfibroziL 600 MG TABLET PO SCH (08:56)
[2019-09-07] MEDS: hydroCHLOROthiazide 25 MG TABLET PO SCH (08:56)
[2019-09-07] MEDS: LOSARTAN 50 MG TABLET PO SCH (08:57)
[2019-09-07] MEDS: GABAPENTIN 300 MG CAPSULE PO SCH (08:57)
[2019-09-07] MEDS: DICLOFENAC 1.3% PATCH 5/PACK TRANSDERM SCH (09:11)
[2019-09-07] MEDS: PANTOPRAZOLE 40 MG TABLET PO SCH (09:22)
[2019-09-07 12:26] VITALS: BP 145/65
== END 2019-09-07 13:58 | disposition home or self-care (01) ==
LOC: N.ED 16:28 → N.EDINP 16:28 → N.2E 22:53
PROVIDERS: ADMIT Internal Medicine; ATTEND Internal Medicine

== ENCOUNTER 2020-01-01 15:37 | Observation (INO) ==
[2020-01-01] MEDS ORDERED: ALBUTEROL/IPRATROPIUM 3 ML NEB RESP TX STA (16:25)
[2020-01-01] MEDS ORDERED: ONDANSETRON 4 MG/2 ML VIAL IV STA (16:25)
[2020-01-01] MEDS ORDERED: FUROSEMIDE 100 MG/10 ML VIAL IV STA (16:25)
[2020-01-01] MEDS ORDERED: MORPHINE 4 MG/1 ML VIAL IV STA (16:25)
[2020-01-01] MEDS ORDERED: NITROGLYCERIN 2% OINT 1 INCH/GM PACK TOP STA (16:25)
[2020-01-01 16:51] LABS: Alanine Aminotransferase 30 U/L (13-56); Albumin 3.9 G/DL (3.4-5.0); Alkaline Phosphatase 125 U/L (45-117); Aspartate Amino Transferase 23 U/L (0-37); Bilirubin,Total < 0.39 MG/DL (0.2-1.0); Blood Urea Nitrogen 34 MG/DL (7-18); Calcium 9.5 MG/DL (8.5-10.1); Estimated Glom Filtration Rate 51 ML/MIN; Glucose 263 MG/DL (74-106); Osmolality,Calculated 286.1 MOS/KG (273-304); Total Protein 7.9 G/DL (6.4-8.3)
[2020-01-01 16:58] LABS: Basophils # 0.1 10*3/uL (0.0-0.2); Basophils % 1.9 % (0.0-0.8); Eosinophils # 0.5 10*3/uL (0.0-0.87); Eosinophils % 7.7 % (0.00-10.9); Hematocrit 36.5 VOL% (35.7-47.0); Hemoglobin 12.1 GM/DL (12.0-16.0); Immature Granulocytes % 0.5 %; Immature Granulocytes Absolute 0.03 #; Lymphocytes # 1.4 10*3/uL (1.4-4.0); Lymphocytes % 21.7 % (21.3-54.2); Mean Corpuscular HGB Conc 33.2 GM/DL (32-36); Mean Corpuscular Volume 88.6 FL (87-102); Mean Platelet Volume 11.1 FL (9.6-12.0); Monocytes % 8.9 % (1.7-12.7); Neutrophils % 59.3 % (38.7-73.9); Platelet Count 346 T/CUMM (130-400); Red Blood Count 4.12 MC/CUMM (3.8-5.5); Red Cell Distribution Width 12.2 % (9.3-17.3); White Blood Count 6.4 T/CUMM (4-12)
[2020-01-01 17:07] LABS: PT Patient Result 10.3 SECS (9.8-11.9)
[2020-01-01 17:13] LABS: Apearance,Urine CLEAR (Clear); Bacteria,Urine Occasional /HPF (Few); Bilirubin,Urine Negative (Negative); Blood, Urine Negative (Negative); Glucose,Urine (UA) 150 mg/dL (Negative); Hyaline Casts,Urine 1 /LPF (0-3); Ketones,Urine Negative (Negative); Mucus,Urine Occasional /LPF (Occasional); Nitrite,Urine Negative (Negative); Protein,Urine Negative; RBC,Urine <1 /HPF (0-4); Squamous Epithelial Cell,Urine Occasional /HPF (0-10); Urine Color Colorless (Yellow); Urine Specific Gravity 1.008 (1.001-1.035); Urine Urobilinogen < 2.0 EU/DL (0.2-1.0); WBC,Urine 1 /HPF (0-6)
[2020-01-01] MEDS ORDERED: ENOXAPARIN 100 MG/ML SYRINGE SUBCUT STA (18:15)
[2020-01-01] MEDS ORDERED: ACETAMINOPHEN 500 MG TABLET PO STA (18:58)
[2020-01-01] MEDS ORDERED: DEXTROSE 50% 25 GM/50 ML VIAL IV PRN (18:59)
[2020-01-01] MEDS ORDERED: ONDANSETRON 4 MG/2 ML VIAL IV PRN (18:59)
[2020-01-01] MEDS ORDERED: DEXTROSE 10% 250 ML BAG IV PRN (18:59)
[2020-01-01] MEDS ORDERED: GLUCAGON 1 MG VIAL IM PRN ×2 (18:59)
[2020-01-01] MEDS ORDERED: LACTATED RINGERS 1,000 ML IV SCH (19:00)
[2020-01-01] MEDS: cloNIDine 0.1 MG TABLET PO SCH (20:46)
[2020-01-01] MEDS: rOPINIRole 4 MG TABLET PO SCH (20:46)
[2020-01-01] MEDS: INSULIN GLARGINE 100 UNIT/ML SUBCUT SCH (20:47)
[2020-01-01] MEDS: carvediloL 25 MG TABLET PO SCH (20:47)
[2020-01-01] MEDS: gemfibroziL 600 MG TABLET PO SCH (20:47)
[2020-01-01] MEDS: GABAPENTIN 300 MG CAPSULE PO SCH (20:47)
[2020-01-01 21:28] LABS: Troponin I < 0.015 NG/ML (0.00-0.045)
[2020-01-01 23:07] LABS: Troponin I < 0.015 NG/ML (0.00-0.045)
[2020-01-02] MEDS: ACETAMINOPHEN 325 MG TABLET PO PRN ×4 (00:15→22:06)
[2020-01-02 01:15] LABS: Basophils # 0.1 10*3/uL (0.0-0.2); Basophils % 1.8 % (0.0-0.8); Eosinophils # 0.5 10*3/uL (0.0-0.87); Eosinophils % 8.1 % (0.00-10.9); Immature Granulocytes % 0.3 %; Immature Granulocytes Absolute 0.02 #; Lymphocytes # 1.3 10*3/uL (1.4-4.0); Mean Corpuscular HGB Conc 33.3 GM/DL (32-36); Mean Corpuscular Volume 89.7 FL (87-102); Mean Platelet Volume 10.9 FL (9.6-12.0); Monocytes % 9.8 % (1.7-12.7); Platelet Count 308 T/CUMM (130-400); Red Blood Count 3.68 MC/CUMM (3.8-5.5); Red Cell Distribution Width 12.3 % (9.3-17.3); White Blood Count 6.1 T/CUMM (4-12)
[2020-01-02 01:16] LABS: Calcium 8.8 MG/DL (8.5-10.1); Osmolality,Calculated 287.1 MOS/KG (273-304)
[2020-01-02 01:22] LABS: Troponin I < 0.015 NG/ML (0.00-0.045)
[2020-01-02 01:30] LABS: Risk Ratio 4.94; Thyroid Stimulating Hormone 6.48 uIU/ml (0.358-3.74); VLDL CHOLESTEROL 61.4 MG/DL
[2020-01-02] MEDS ORDERED: LEVOTHYROXINE 175 MCG TABLET PO SCH (06:30)
[2020-01-02] MEDS: LOSARTAN 50 MG TABLET PO SCH (08:21)
[2020-01-02] MEDS: gemfibroziL 600 MG TABLET PO SCH (08:21)
[2020-01-02] MEDS: PANTOPRAZOLE 40 MG TABLET PO SCH (08:21)
[2020-01-02] MEDS: FUROSEMIDE 40 MG/4 ML VIAL IV SCH ×2 (08:21→16:03)
[2020-01-02] MEDS: buPROPion XL 150 MG TABLET PO SCH (08:21)
[2020-01-02] MEDS: DULoxetine 30 MG CAPSULE PO SCH (08:21)
[2020-01-02] MEDS: carvediloL 25 MG TABLET PO SCH ×2 (08:21→21:31)
[2020-01-02] MEDS: GABAPENTIN 300 MG CAPSULE PO SCH ×2 (08:21→21:31)
[2020-01-02] MEDS ORDERED: amLODIPine 5 MG TABLET PO SCH (09:00)
[2020-01-02] MEDS ORDERED: ASPIRIN EC 325 MG TABLET PO SCH (09:00)
[2020-01-02] MEDS: INSULIN REGULAR 100 UNIT/ML SUBCUT SCH ×3 (09:16→16:38)
[2020-01-02] MEDS ORDERED: amLODIPine 10 MG TABLET PO SCH (10:46)
[2020-01-02] MEDS ORDERED: LEVOTHYROXINE 200 MCG TABLET PO SCH (15:09)
[2020-01-02] MEDS ORDERED: ENOXAPARIN 100 MG/ML SYRINGE SUBCUT SCH (18:00)
[2020-01-02] MEDS ORDERED: ATORVASTATIN 80 MG TABLET PO SCH (21:00)
[2020-01-02] MEDS: rOPINIRole 4 MG TABLET PO SCH (21:30)
[2020-01-02] MEDS: INSULIN GLARGINE 100 UNIT/ML SUBCUT SCH (21:31)
[2020-01-02] MEDS: cloNIDine 0.1 MG TABLET PO SCH (21:31)
[2020-01-03] MEDS: ACETAMINOPHEN 325 MG TABLET PO PRN (05:45)
[2020-01-03 08:00] LABS: Basophils # 0.1 10*3/uL (0.0-0.2); Eosinophils # 0.6 10*3/uL (0.0-0.87); Eosinophils % 12.5 % (0.00-10.9); Hematocrit 35.7 VOL% (35.7-47.0); Hemoglobin 11.9 GM/DL (12.0-16.0); Immature Granulocytes % 0.4 %; Immature Granulocytes Absolute 0.02 #; Lymphocytes # 1.1 10*3/uL (1.4-4.0); Lymphocytes % 22.4 % (21.3-54.2); Mean Corpuscular HGB Conc 33.3 GM/DL (32-36); Mean Corpuscular Volume 87.1 FL (87-102); Mean Platelet Volume 10.7 FL (9.6-12.0); Monocytes % 9.9 % (1.7-12.7); Neutrophils % 52.8 % (38.7-73.9); Platelet Count 320 T/CUMM (130-400); Red Cell Distribution Width 12.2 % (9.3-17.3)
[2020-01-03 08:19] LABS: Calcium 9.4 MG/DL (8.5-10.1); Osmolality,Calculated 283.1 MOS/KG (273-304)
[2020-01-03 08:27] LABS: Eosinophils 11 % (0-10); Hypochromasia 1+; Lymphocytes 29 % (20-55); Microcytosis Slight; Platelet Estimate Adequate; Segmented Neutrophils 52 % (50-85); Total Cells Counted 100
[2020-01-03] MEDS ORDERED: FENOFIBRATE 145 MG TABLET PO SCH (09:00)
[2020-01-03] MEDS ORDERED: ASPIRIN EC 81 MG TABLET PO SCH (09:00)
[2020-01-03] MEDS: FUROSEMIDE 40 MG/4 ML VIAL IV SCH (09:32)
[2020-01-03] MEDS: INSULIN REGULAR 100 UNIT/ML SUBCUT SCH (09:47)
[2020-01-03] MEDS: LOSARTAN 50 MG TABLET PO SCH (09:48)
[2020-01-03] MEDS: GABAPENTIN 300 MG CAPSULE PO SCH (09:48)
[2020-01-03] MEDS: buPROPion XL 150 MG TABLET PO SCH (09:48)
[2020-01-03] MEDS: DULoxetine 30 MG CAPSULE PO SCH (09:48)
[2020-01-03] MEDS: carvediloL 25 MG TABLET PO SCH (09:49)
[2020-01-03] MEDS: PANTOPRAZOLE 40 MG TABLET PO SCH (09:49)
[2020-01-03 12:32] VITALS: BP 137/83
[2020-01-03] MEDS ORDERED: LOSARTAN 50 MG TABLET PO SCH (21:00)
[2020-01-04] MEDS ORDERED: ENOXAPARIN 40 MG/0.4 ML SYRINGE SUBCUT SCH (09:00)
[2020-01-04] MEDS ORDERED: FUROSEMIDE 80 MG TABLET PO SCH (09:00)
== END 2020-01-03 13:36 | disposition home health service (06) ==
LOC: N.ED 15:37 → N.EDINP 15:37 → SUATTDRO 18:59 → N.TELEN 19:53
PROVIDERS: ADMIT Phlebology; ATTEND Internal Medicine